=== PATIENT | female | born 1985 | race Caucasian/White ===

== ENCOUNTER 2016-11-03 10:04 | Emergency (ER) | payer OTHER | END 2016-11-03 13:15 | disposition home or self-care (01) | DX: F53 Mental and behavioral disorders associated with the puerperium, not elsewhere classified (principal); R45.851 Suicidal ideations; F51.02 Adjustment insomnia; F41.9 Anxiety disorder, unspecified ==

== ENCOUNTER 2018-10-03 11:43 | Emergency (ER) | payer OTHER ==
--- NOTE | 2018-10-03 12:50 | ED Physician Documentation ---
PD HPI URI - Stated complaint Stated Complaint: THROAT PX/DIFF BREATHING/24WKS PREG - Chief complaint Chief Complaint: Resp - History obtained from History obtained from: Patient - History of Present Illness Timing - onset: How many days ago (4) Timing duration: Days (4) Timing details: Abrupt onset, Still present Associated symptoms: Fever, Chills, Sore throat, Dry cough, Dyspnea, Other (still feeling movements and does not have cramping nor bleeding.). No: NVD Contributing factors: No: Sick contact, Travel Similar symptoms before: Has not had sx before Recently seen: Clinic (normal care so far. Was checked in OB by verbal report, with good heartbeat.) Review of Systems Constitutional: reports: Fever, Chills, Myalgias Nose: reports: Congestion Throat: reports: Sore throat Respiratory: reports: Cough GI: reports: Nausea. 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 : None HEENT: None Psych: None Musculoskeletal: None Derm: None - Past Surgical History Past Surgical History: No - Present Medications Home Medications: Ambulatory Orders Medication Instructions Recorded Confirmed ALPRAZolam [Alprazolam] 0.5 mg PO BID PRN #20 tablet 11/03/16 Sertraline [Zoloft] 50 mg PO DAILY #30 tablet 11/03/16 Dexamethasone [Decadron] 4 mg PO DAILY #5 tablet 10/03/18 Hydrocodone/Acetaminophen [[place] 1 each PO Q6H PRN #12 tablet 10/03/18 5-325 Tablet] Ondansetron Odt [Zofran] 4 mg TL Q6H PRN #10 tablet 10/03/18 Oseltamivir [Tamiflu] 75 mg PO BID #10 capsule 10/03/18 - Allergies Allergies/Adverse Reactions: Allergies Allergy/AdvReac Type Severity Reaction Status Date / Time Penicillins Allergy Unknown Verified 10/03/18 11:51 Sulfa (Sulfonamide Allergy Unknown Verified 10/03/18 11:51 Antibiotics) - Social History Does the pt smoke?: No Smoking Status: Never smoker Does the pt drink ETOH?: No Does the pt have substance abuse?: No - Immunizations Immunizations are current?: Yes - POLST Patient has POLST: No PD ED PE NORMAL - Vitals Vital signs reviewed: Yes - General General: Alert and oriented X 3, No acute distress, Well developed/nourished - HEENT HEENT: Ears normal, Moist mucous membranes. No: Pharynx benign (mild redness without exudate) - Neck Neck: Supple, no meningeal sign, No adenopathy - Cardiac Cardiac: RRR (tachycardic), No murmur - Respiratory Respiratory: Clear bilaterally - Abdomen Abdomen: Normal bowel sounds, Soft, Non tender, Non distended, Other (gravid with fundus above umbilicus. Not tender.) - Derm Derm: Normal color, Warm and dry - Neuro Neuro: Alert and oriented X 3, No motor deficit, Normal speech Results - Vitals Vitals: Vital Signs - 24 hr 10/03/18 10/03/18 11:45 11:50 Temperature 37 C Heart Rate 126 H 110 H Respiratory 22 16 Rate Blood Pressure 130/71 120/64 O2 Saturation 98 99 Oxygen O2 Source Room air - Labs Labs: Laboratory Tests 10/03/18 10/03/18 11:52 13:09 Influenza A (Rapid) POSITIVE H Influenza B (Rapid) Negative Group A Strep Rapid Negative PD MEDICAL DECISION MAKING - ED course Complexity details: considered differential (has flu A. would be more likely to give Tamiflu, given . Still having movement and heart beat (was checked at OB before ER by report). She did not feel she needed IV fluids, was hydrating okay. ), d/w patient Departure - Departure Disposition: 01 Home, Self Care Clinical Impression: Influenza A Pharyngitis Qualifiers: Pharyngitis/tonsillitis etiology: unspecified etiology Qualified Code(s): J02.9 - Acute pharyngitis, unspecified Condition: Stable Record reviewed to determine appropriate education?: Yes Instructions: ED Flu, ED Pharyngitis Viral Prescriptions: Dexamethasone [Decadron] 4 mg PO DAILY #5 tablet Hydrocodone/Acetaminophen [[place] 5-325 Tablet] 1 each PO Q6H PRN #12 tablet PRN Reason: Pain Ondansetron Odt [Zofran] 4 mg TL Q6H PRN #10 tablet PRN Reason: Nausea / Vomiting Oseltamivir [Tamiflu] 75 mg PO BID #10 capsule Comments: Your strep test is negative. Your flu test is positive. Given the and your symptoms, we can try to decrease the symptoms with oseltamivir which targets the flu. Mainly we will treat the symptoms with Decadron steroid for inflammation. Ondansetron if needed for nausea. Add Tylenol or hydrocodone if needed for the pains. He will likely feel ill for 7-10 days with the flu. Recheck if your symptoms are not improved however over the next day or 2. Discharge Date/Time: 10/03/18 14:25
[2018-10-03] MEDS ORDERED: HYDROcod/ACETAM 5/325 MG TABLET PO STA (13:11)
[2018-10-03] MEDS ORDERED: ACETAMINOPHEN 325 MG TABLET PO STA (13:11)
[2018-10-03] MEDS ORDERED: DEXAMETHASONE 10 MG/ML VIAL PO STA (13:11)
[2018-10-03] MEDS ORDERED: OSELTAMIVIR 75 MG CAPSULE PO STA (13:44)
[2018-10-03 14:07] VITALS: BP 120/64
== END 2018-10-03 14:25 | disposition home or self-care (01) ==
LOC: ED 11:43
DX: O26.892 Other specified pregnancy related conditions, second trimester (principal); J10.1 Influenza due to other identified influenza virus with other respiratory manifestations; Z3A.24 24 weeks gestation of pregnancy
CPT/HCPCS: 87070; 87275; 87276; 87430; 99283; A9270

== ENCOUNTER 2019-02-02 22:53 | Emergency (ER) | payer OTHER ==
[2019-02-02 23:03] VITALS: BP 118/66
--- NOTE | 2019-02-02 23:47 | XRAY Report ---
Reason: cough Procedure Date: 02/02/2019 Accession Number: [id number] / [id number] Procedure: XR - Chest 2 View X-Ray CPT Code: 03946 FULL RESULT: EXAM: CHEST RADIOGRAPHY EXAM DATE: 02/02/2019 11:40 PM. CLINICAL HISTORY: Cough. COMPARISON: CHEST 2 VIEW PA/LAT 12/01/2015 8:10 PM. TECHNIQUE: 2 views. FINDINGS: Lungs/Pleura: No alveolar consolidation or pleural effusion seen. No pneumothorax. Mediastinum: Heart and mediastinal contours are unremarkable. Other: None. IMPRESSION: 1. No acute abnormality seen in the chest. RADIA
[2019-02-03] MEDS ORDERED: LORATADINE 10 MG TABLET PO STA (00:18)
--- NOTE | 2019-02-03 00:20 | ED Physician Documentation ---
History of Present Illness - Stated complaint Stated Complaint: COUGH - Chief complaint Chief Complaint: Heent - History obtained from History obtained from: Patient, Family - Additonal information Additional information: 33-year-old female with a dry cough for the past 2 to 3 weeks. She gave approximately a week ago. Has not taken anything for this. No fevers. Nothing makes it better or worse. Does have rhinorrhea and congestion. No nausea. No vomiting. 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 - Past Surgical History Past Surgical History: No - Present Medications Home Medications: Ambulatory Orders Medication Instructions Recorded Confirmed ALPRAZolam [Alprazolam] 0.5 mg PO BID PRN #20 tablet 11/03/16 Sertraline [Zoloft] 50 mg PO DAILY #30 tablet 11/03/16 Hydrocodone/Acetaminophen [[place] 1 each PO Q6H PRN #12 tablet 10/03/18 5-325 Tablet] Ondansetron Odt [Zofran] 4 mg TL Q6H PRN #10 tablet 10/03/18 Oseltamivir [Tamiflu] 75 mg PO BID #10 capsule 10/03/18 dexAMETHasone [Decadron] 4 mg PO DAILY #5 tablet 10/03/18 Loratadine [Claritin] 10 mg PO DAILY PRN #30 tablet 02/03/19 - Allergies Allergies/Adverse Reactions: Allergies Allergy/AdvReac Type Severity Reaction Status Date / Time Penicillins Allergy Unknown Verified 02/02/19 23:04 Sulfa (Sulfonamide Allergy Unknown Verified 02/02/19 23:04 Antibiotics) - Social History Does the pt smoke?: No Smoking Status: Never smoker Does the pt drink ETOH?: No Does the pt have substance abuse?: No - Immunizations Immunizations are current?: Yes - POLST Patient has POLST: No PD ED PE NORMAL - Vitals Vital signs reviewed: Yes - General General: Alert and oriented X 3, No acute distress - HEENT HEENT: Ears normal, Moist mucous membranes, Other (Mild posterior oropharyngeal erythema without tonsillar exudates.) - Neck Neck: Supple, no meningeal sign, No adenopathy - Cardiac Cardiac: RRR - Respiratory Respiratory: No respiratory distress, Clear bilaterally - Abdomen Abdomen: Soft, Non tender, Non distended - Derm Derm: Warm and dry - Neuro Neuro: Alert and oriented X 3 - Psych Psych: Normal mood, Normal affect Results - Vitals Vitals: Vital Signs - 24 hr 02/02/19 02/03/19 23:00 00:27 Temperature 36.5 C Heart Rate 67 Respiratory 17 16 Rate Blood Pressure 118/66 O2 Saturation 100 Oxygen O2 Source Room air - Rads (name of study) cxr Radiology: Prelim report reviewed, EMP read contemporaneously, See rad report (No acute disease) PD MEDICAL DECISION MAKING - ED course Complexity details: reviewed results, re-evaluated patient, considered differential, d/w patient ED course: 33-year-old female with a cough for the past few weeks. Possible seasonal allergies? Will place on Claritin as she has breast-feeding. Patient is well- appearing, nontoxic. Afebrile. No acute findings on x-ray. Patient counseled regarding signs and symptoms for which I believe and urgent re-evaluation would be necessary. Patient with good understanding of and agreement to plan and is comfortable going home at this time This document was made in part using voice recognition software. While efforts are made to proofread this document, sound alike and grammatical errors may occur. Departure - Departure Disposition: 01 Home, Self Care Clinical Impression: Cough Condition: Good Instructions: ED Allergy Seasonal Follow-Up: your,doctor in 1 week [Other] Prescriptions: Loratadine [Claritin] 10 mg PO DAILY PRN #30 tablet PRN Reason: Allergy Symptoms Comments: Return if you worsen. This should improve over the next few days. Continue the Claritin at home. Discharge Date/Time: 02/03/19 00:28
== END 2019-02-03 00:28 | disposition home or self-care (01) ==
LOC: ED 22:53
DX: O99.89 Other specified diseases and conditions complicating pregnancy, childbirth and the puerperium (principal); R05 Cough; R09.81 Nasal congestion
CPT/HCPCS: 71046; 99283; A9270

== ENCOUNTER 2020-02-06 17:45 | Emergency (ER) | payer OTHER ==
--- NOTE | 2020-02-06 18:44 | XRAY Report ---
Reason: trauma Procedure Date: 02/06/2020 Accession Number: [id number] / [id number] Procedure: XR - Elbow 3 View LT CPT Code: Final Report FULL RESULT: PROCEDURE: Elbow 3 View LT INDICATIONS: trauma TECHNIQUE: 3 views of the elbow were acquired. COMPARISON: None FINDINGS: Bones: No definite fractures or dislocations but on one of the 4 views available there is a longitudinally oriented lucency at the radial head/neck junction, suspicious for a nondisplaced fracture. No suspicious bony lesions. Soft tissues: There is a significant definite elbow joint effusion elevating the anterior and posterior fat pads at the distal humerus. No suspicious soft tissue calcifications. IMPRESSION: Definite moderately large elbow joint effusion after trauma, suspected vertically oriented fracture involving the radial head/neck junction. Delayed plain films likely will identify a fracture in this clinical circumstance. Currently a displaced fracture is not found. The suspected site of fracture is area. At the radial head area. Reviewed by: Jose Manuel Dee MD on 02/06/2020 6:43 PM PDT Approved by: Jose Manuel Dee MD on 02/06/2020 6:43 PM PDT Station ID: [id number]
--- NOTE | 2020-02-06 18:47 | XRAY Report ---
Reason: Trauma Procedure Date: 02/06/2020 Accession Number: [id number] / [id number] Procedure: XR - Forearm LT CPT Code: Final Report FULL RESULT: PROCEDURE: Forearm LT INDICATIONS: Trauma TECHNIQUE: 2 views of the forearm were acquired. COMPARISON: FINDINGS: Bones: No definite fractures or dislocations. No suspicious bony lesions. Soft tissues: No suspicious soft tissue calcifications or masses. There is a elbow joint effusion as was seen on dedicated elbow plain film imaging earlier today. IMPRESSION: Elbow joint effusion after trauma, fracture in this area is presumed but not clearly visualized. The forearm elsewhere appears normal. Reviewed by: Jose Manuel eDe MD on 02/06/2020 6:46 PM PDT Approved by: Jose Manuel Dee MD on 02/06/2020 6:46 PM PDT Station ID: [id number]
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
[2020-02-06] MEDS ORDERED: HYDROcod/ACETAM 5/325 MG TABLET PO STA (19:28)
[2020-02-06] MEDS ORDERED: IBUPROFEN 600 MG TABLET PO STA ×2 (19:28→19:48)
[2020-02-06 20:16] VITALS: BP 114/78
== END 2020-02-06 20:16 | disposition home or self-care (01) ==
LOC: ED 17:45
DX: S52.125A Nondisplaced fracture of head of left radius, initial encounter for closed fracture (principal); S50.02XA Contusion of left elbow, initial encounter; S50.312A Abrasion of left elbow, initial encounter; V00.131A Fall from skateboard, initial encounter; Y93.51 Activity, roller skating (inline) and skateboarding; Y92.410 Unspecified street and highway as the place of occurrence of the external cause
CPT/HCPCS: 73080; 73090; 99283; A9270

== ENCOUNTER 2021-05-17 20:33 | Emergency (ER) | payer OTHER ==
[2021-05-17] MEDS ORDERED: BUFFERED LIDOCAINE 10 ML SYRINGE SUBQ STA (21:36)
[2021-05-17] MEDS ORDERED: TETANUS/DIPHTHERIA/PERTUSSIS 0.5 ML SYRINGE IM ONE (21:47)
--- NOTE | 2021-05-17 22:03 | ED Physician Documentation ---
PD HPI LOWER EXT INJURY - Stated complaint Stated Complaint: CUT ON LT FOOT - Chief complaint Chief Complaint: Laceration - History obtained from History obtained from: Patient - History of Present Illness PD HPI LOW EXT INJURY LOCATION: Left, Toe (3rd) Type of injury: Laceration Where injury occurred: Home Timing - onset: Today Timing - duration: Minutes Timing - details: Abrupt onset, Still present Improved by: Rest Worsened by: Moving, Palpating Associated symptoms: No: Weakness, Numbness, Tingling, Swelling, Discolored Contributing factors: No: Anticoagulated Similar symptoms before: Diagnosis (laceration) Recently seen: Not recently seen - Additional information Additional information: Previous well 35-year-old female pulled something out of her refrigerator the shelf in the refrigerator fell and the glass broke. She is uncertain how exactly her toe got cut but she is got quite a bit of bleeding from the middle toe of the left foot. She is able to control the bleeding with direct pressure and comes in now for suturing. 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 : None HEENT: None Psych: None Musculoskeletal: None Derm: None - Past Surgical History Past Surgical History: No - Present Medications Home Medications: Ambulatory Orders Medication Instructions Recorded Confirmed No Known Home Medications 05/17/21 05/17/21 - Allergies Allergies/Adverse Reactions: Allergies Allergy/AdvReac Type Severity Reaction Status Date / Time Penicillins Allergy Unknown Verified 05/17/21 20:36 Sulfa (Sulfonamide Allergy Unknown Verified 05/17/21 20:36 Antibiotics) - Social History Does the pt smoke?: No Smoking Status: Never smoker Does the pt drink ETOH?: No Does the pt have substance abuse?: No - Immunizations Immunizations are current?: No Immunizations: TDAP >10years/unknown - POLST Patient has POLST: No PD ED PE NORMAL - Vitals Vital signs reviewed: Yes (Normal) - General General: Alert and oriented X 3, No acute distress, Well developed/nourished - HEENT HEENT: Atraumatic, PERRL, EOMI - Respiratory Respiratory: No respiratory distress - Derm Derm: Normal color, Warm and dry, No rash - Extremities Extremities: No deformity, No edema, Other (There is 1/2 cm laceration to the dorsum of the left middle toe over the interphalangeal joint there is no foreign material in the wound distal neurovascular intact) - Neuro Neuro: Alert and oriented X 3, 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, No motor deficit, No sensory deficit, Normal speech Eye Opening: Spontaneous Motor: Obeys Commands Verbal: Oriented GCS Score: 15 - Psych Psych: Normal mood, Normal affect Results - Vitals Vitals: Vital Signs - 24 hr 05/17/21 20:36 Temperature 36.5 C Heart Rate 74 Respiratory 16 Rate Blood Pressure 120/60 O2 Saturation 100 Oxygen O2 Source Room air Procedures - Laceration (location) left middle toe Wound type: Stellate, Flap Neurovascular status: Sensory intact, Motor intact, Vascular intact Anesthesia: Lidocaine 1%, With bicarb Wound preparation: Hibiclens, Irrigated copiously NS, Wound explored, To the base Skin layer closure: Nylon, Interrupted, Size #-0 - enter number (4-0), Sutures - enter # (3) Other: Patient tolerated well, No complications, Neurovascular intact, Dressing applied, Tetanus booster given PD MEDICAL DECISION MAKING - ED course Complexity details: considered differential, d/w patient ED course: 35-year-old female with a left middle toe laceration has her wound cleansed and sutured she is given a tetanus booster she is dispensed the instruments for removal of her sutures and instructed to remove the sutures in 7 to 10 days. Departure - Departure Disposition: 01 Home, Self Care Clinical Impression: Toe laceration Qualifiers: Encounter type: initial encounter Toe: lesser toe Damage to nail status: without damage Foreign body presence: without foreign body Laterality: left Qualified Code(s): S91.115A - Laceration without foreign body of left lesser toe(s) without damage to nail, initial encounter Condition: Stable Instructions: ED Laceration Foot Follow-Up: QAMAR Jackson [Provider Group] Comments: Sutures will need to be removed in 7 to 10 days
[2021-05-17] MEDS ORDERED: BACITRACIN ZINC OINT 1 PACKET TOP STA (22:08)
[2021-05-17 22:19] VITALS: BP 120/70
== END 2021-05-17 22:17 | disposition home or self-care (01) ==
LOC: ED 20:33
DX: S91.115A Laceration without foreign body of left lesser toe(s) without damage to nail, initial encounter (principal); W25.XXXA Contact with sharp glass, initial encounter; Y93.G9 Activity, other involving cooking and grilling; Y92.000 Kitchen of unspecified non-institutional (private) residence as the place of occurrence of the external cause
CPT/HCPCS: 12001; 90715; 99281; 99282; A9270

== ENCOUNTER 2022-02-10 23:44 | Emergency (ER) | payer OTHER ==
[2022-02-11 00:09] LABS: BASOPHILS # (AUTO) 0.1 10^3/uL (0.0-0.1); BASOPHILS % (AUTO) 0.9 %; EOSINOPHILS # (AUTO) 0.3 10^3/uL (0.0-0.7); EOSINOPHILS % (AUTO) 4.6 %; HCT - HEMATOCRIT 39.3 % (37.0-47.0); HGB - HEMOGLOBIN 13.5 g/dL (12.0-16.0); LYMPHOCYTES # (AUTO) 2.6 10^3/uL (1.5-3.5); LYMPHOCYTES % (AUTO) 38.3 %; MEAN CORPUSCULAR HEMOGLOBIN 32.2 pg (27.0-31.0); MEAN CORPUSCULAR HGB CONC 34.4 g/dL (32.0-36.0); MEAN CORPUSCULAR VOLUME 93.8 fL (81.0-99.0); MEAN PLATELET VOLUME 10.3 fL (7.9-10.8); MONOCYTES # (AUTO) 0.5 10^3/uL (0.0-1.0); MONOCYTES % (AUTO) 7.9 %; NEUTROPHILS # (AUTO) 3.3 10^3/uL (1.5-6.6); NEUTROPHILS % (AUTO) 48.2 %; PLT - PLATELET COUNT 234 10^3/uL (130-450); RED BLOOD COUNT 4.19 10^6/uL (4.20-5.40); RED CELL DISTRIBUTION WIDTH 11.7 % (12.0-15.0); WHITE BLOOD COUNT 6.7 x10^3/uL (4.8-10.8)
[2022-02-11 00:21] LABS: ALBUMIN 4.3 g/dL (3.2-5.5); ALBUMIN/GLOBULIN RATIO 1.6 (1.0-2.2); BILIRUBIN,TOTAL 0.5 mg/dL (0.2-1.0); CALCIUM 9.2 mg/dL (8.5-10.3); CREATININE 0.7 mg/dL (0.4-1.0); POTASSIUM 3.8 mmol/L (3.5-5.0)
[2022-02-11] MEDS ORDERED: KETOROLAC 30 MG/ML VIAL IVP STA (00:56)
--- NOTE | 2022-02-11 00:57 | ED Physician Documentation ---
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 Over the past day she has developed a separate problem that is extremely painful in the pelvis and painful with any movement. She is having pain to push on the prolapse as well. Specifically this pain is separate from what she has had previously and has a modifiable factor of movement.She is not having discharge or bleeding. Review of Systems Constitutional: denies: Fever Eyes: denies: Decreased vision Ears: denies: Ear pain Nose: denies: Congestion Throat: denies: Sore throat Cardiac: denies: Chest pain / pressure, Palpitations Respiratory: denies: Dyspnea, Cough GI: reports: Abdominal Pain, Nausea. denies: Vomiting, Constipation, Diarrhea : denies: Dysuria, Frequency Skin: denies: Rash Musculoskeletal: denies: Neck pain, Back pain, Extremity pain PD PAST MEDICAL HISTORY - Past Medical History Past Medical History: No Cardiovascular: None Respiratory: None Neuro: None Endocrine/Autoimmune: None GI: None HYDRAULIC SPINNER: None : None HEENT: None Psych: None Musculoskeletal: None Derm: None - Past Surgical History Past Surgical History: No - Present Medications Home Medications: Ambulatory Orders Medication Instructions Recorded Confirmed Oxycodone HCl/Acetaminophen 1 - 2 each PO Q6H PRN #14 tablet 02/11/22 [Percocet 5-325 mg Tablet] - Allergies Allergies/Adverse Reactions: Allergies Allergy/AdvReac Type Severity Reaction Status Date / Time Penicillins Allergy Unknown Verified 02/10/22 23:50 Sulfa (Sulfonamide Allergy Unknown Verified 02/10/22 23:50 Antibiotics) - Social History Does the pt smoke?: No Smoking Status: Never smoker Does the pt drink ETOH?: No Does the pt have substance abuse?: No - Immunizations Immunizations are current?: No Immunizations: TDAP >10years/unknown - POLST Patient has POLST: No PD ED PE NORMAL - Vitals Vital signs reviewed: Yes (Hypertensive mild) - General General: Alert and oriented X 3, Well developed/nourished - HEENT HEENT: Atraumatic, PERRL, EOMI - Neck Neck: Supple, no meningeal sign, No bony TTP - Cardiac Cardiac: RRR, No murmur - Respiratory Respiratory: No respiratory distress, Clear bilaterally - Abdomen Abdomen: Normal bowel sounds, Soft, Non distended, No organomegaly, Other (Supra pubic tenderness is marked and seems more on the right than the left.) - Back Back: No CVA TTP, No spinal TTP - Derm Derm: Normal color, Warm and dry, No rash - Extremities Extremities: No deformity, No edema - Neuro Neuro: Alert and oriented X 3, 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, No motor deficit, No sensory deficit, Normal speech Eye Opening: Spontaneous Motor: Obeys Commands Verbal: Oriented GCS Score: 15 - Psych Psych: Other (Mood is anxious then the affect is labile) Results - Vitals Vitals: Vital Signs - 24 hr 02/10/22 02/11/22 02/11/22 23:45 00:45 01:47 Temperature 36.5 C Heart Rate 89 84 Respiratory 14 16 16 Rate Blood Pressure 135/85 H 107/75 O2 Saturation 97 97 02/11/22 01:52 Temperature Heart Rate Respiratory 17 Rate Blood Pressure O2 Saturation Oxygen O2 Source Room air - Labs Labs: Laboratory Tests 02/10/22 02/10/22 02/11/22 00:03 00:03 01:20 WBC 6.7 RBC 4.19 L Hgb 13.5 Hct 39.3 MCV 93.8 MCH 32.2 H MCHC 34.4 RDW 11.7 L Plt Count 234 MPV 10.3 Neut # (Auto) 3.3 Lymph # (Auto) 2.6 [place] # (Auto) 0.5 Eos # (Auto) 0.3 Baso # (Auto) 0.1 Absolute Nucleated RBC 0.00 Nucleated RBC % 0.0 Sodium 137 Potassium 3.8 Chloride 104 Carbon Dioxide 25 Anion Gap 8.0 BUN 23 H Creatinine 0.7 Estimated GFR (MDRD) 95 Glucose 109 H Calcium 9.2 Total Bilirubin 0.5 AST 15 ALT 12 Alkaline Phosphatase 50 Total Protein 7.0 Albumin 4.3 Globulin 2.7 Albumin/Globulin Ratio 1.6 Lipase 39 Urine Color YELLOW Urine Clarity CLEAR Urine pH 6.5 Ur Specific [place] 1.015 Urine Protein NEGATIVE Urine Glucose (UA) NEGATIVE Urine Ketones NEGATIVE Urine Occult Blood NEGATIVE Urine Nitrite NEGATIVE Urine Bilirubin NEGATIVE Urine Urobilinogen 0.2 (NORMAL) Ur Leukocyte Esterase NEGATIVE Ur Microscopic Review NOT INDICATED Urine Culture Comments NOT INDICATED Urine HCG, Qual NEGATIVE - Rads (name of study) Ultrasound the pelvis Radiology: Prelim report reviewed (Impression: 1. No definite acute sonographic abnormality identified in the pelvis. Thick-walled cyst in the right ovary likely represents a corpus luteal cyst or hemorrhagic cyst.), EMP read indepedently, See rad report PD MEDICAL DECISION MAKING - ED course Complexity details: reviewed old records, reviewed results, re-evaluated patient, considered differential, d/w patient, d/w family ED course: 36-year-old female presents to the emergency department with acute pelvic pain. She has other pelvic problems that have been chronic for her and she has not addressed. She feels that she has a uterine prolapse and has some problem with passing her bowel movements without placing pressure on the prolapse. Today her symptoms are separate and painful. They are modified by movement. She has normal blood counts and electrolytes and normal urinalysis she is not . We performed pelvic ultrasound and found a hemorrhagic cyst on the right side. The patient had significant pain associated with this. She did not get adequate relief with Toradol IM and was subsequently administered Dilaudid. The patient is somewhat of a tangential historian and a bit anxious. She does have problems that should be addressed by the HYDRAULIC SPINNER surgeon. I have encouraged the patient to follow-up. Departure - Departure Disposition: 01 Home, Self Care Clinical Impression: Hemorrhagic cyst of right ovary Condition: Stable Instructions: ED Cyst Ovarian Follow-Up: [facility] [Provider Group] Prescriptions: Oxycodone HCl/Acetaminophen [Percocet 5-325 mg Tablet] 1 - 2 each PO Q6H PRN #14 tablet PRN Reason: pain Comments: Kaia, today it looks like the pain you are having is related to an ovarian cyst that has some bleeding into it. This is usually a very painful process and will last 2 to 3 days. I have provided some pain medication to use. The other problems that you are having with your uterine prolapse is best addressed by the specialist. My recommendation is to follow-up with the film loader at [facility]. There is no reason to delay the evaluation of these other problems. Today we did not find problems with your blood counts, electrolytes, urinalysis, kidney or liver functions.
--- NOTE | 2022-02-11 01:32 | Ultrasound Report ---
PROCEDURE: Pelvic w/Doppler Complete INDICATIONS: PELVIC PAIN R TECHNIQUE: Real-time transabdominal scanning was performed of the pelvic organs, with image documentation. COMPARISON: None. FINDINGS: Uterus: Uterus is anteverted and measures 11.0 x 5.7 x 7.4 cm. The endometrium measures up to 1.2 cm . Ovaries: The right ovary measures 4.5 x 2.6 x 3.8 cm with age-related volume of 23 20 mL. The left o vary measures 30.3 x 2.4 x 2.6 cm with a calculated volume of 10.7 mL. There is a thick-walled cyst i n the right ovary measuring up to 3.3 x 2.1 x 2.5 cm. Doppler interrogation demonstrates patent arter ial and venous flow. Other: No free pelvic fluid. IMPRESSION: 1. No definite acute sonographic abnormality identified in the pelvis. 2. Thick wall cyst in the right ovary likely represents a corpus luteal cyst or a hemorrhagic cyst. Reviewed by: Yoel Disa MD on 02/11/2022 1:31 AM PDT Approved by: Yoel Dias MD on 02/11/2022 1:31 AM PDT Station ID: [id number]
[2022-02-11 01:33] LABS: BILIRUBIN,URINE NEGATIVE (NEGATIVE); GLUCOSE, URINE (UA) NEGATIVE (NEGATIVE); KETONES,URINE (UA) NEGATIVE (NEGATIVE); LEUKOCYTE ESTERASE, URINE NEGATIVE (NEGATIVE); NITRITE,URINE NEGATIVE (NEGATIVE); OCCULT BLOOD,URINE NEGATIVE (NEGATIVE); PH,URINE 6.5 PH (5.0-7.5); PROTEIN,URINE NEGATIVE (NEGATIVE); UROBILINOGEN,URINE 0.2 (NORMAL) E.U./dL (NORMAL)
[2022-02-11 01:35] LABS: CLARITY,URINE CLEAR (CLEAR)
[2022-02-11 01:36] LABS: HCG UR QUAL NEGATIVE
[2022-02-11] MEDS ORDERED: oxyCODONE/ACET 5/325 Prepack 4 PO STA (01:43)
[2022-02-11] MEDS ORDERED: ONDANSETRON ODT 4 MG TABLET TL STA (01:58)
[2022-02-11] MEDS ORDERED: HYDROmorphone 1 MG/ML CARPUJECT IM STA (01:58)
[2022-02-11 02:08] VITALS: BP 111/72
== END 2022-02-11 02:16 | disposition home or self-care (01) ==
LOC: ED 23:44
DX: N83.201 Unspecified ovarian cyst, right side (principal)
CPT/HCPCS: 36415; 76856; 80053; 81003; 81025; 83690; 85025; 93975; 96372; 96374; 99284; J1170; Q0162; 81001; 87086

== ENCOUNTER 2022-02-17 07:27 | Emergency (ER) | payer OTHER ==
[2022-02-17 07:36] VITALS: BP 114/71
--- NOTE | 2022-02-17 07:42 | ED Physician Documentation ---
PD HPI FEMALE - Stated complaint Stated Complaint: FEMALE - Chief complaint Chief Complaint: General - History obtained from History obtained from: Patient - History of Present Illness Timing - onset: How many days ago (3-4 days of increasing vaginal itching, tenderness posterior fourchette, and vaginal watery/white discharge. Has had right pelvic pain for over a week as well, which is improved moderately.) Timing - duration: Days Timing - details: Gradual onset, Still present Associated symptoms: Pelvic pain, Vaginal pain, Vaginal discharge, Genital sore/lesion (tender area posterior to vaginal opening). 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 She did not have discharge at that time. Rx with nsaids and pain meds. No abx.) Review of Systems Constitutional: denies: Fever, Chills Nose: denies: Rhinorrhea / runny nose, Congestion Throat: denies: Sore throat Respiratory: denies: Cough Skin: reports: Lesions (she feels there are sores between vaginal opening and rectum.). denies: Rash Musculoskeletal: denies: Back pain PD PAST MEDICAL HISTORY - Past Medical History Cardiovascular: None Respiratory: None Neuro: None Endocrine/Autoimmune: None GI: None CERTIFIED MASTER LOCKSMITH: None : None HEENT: None Psych: None Musculoskeletal: None Derm: None - Past Surgical History Past Surgical History: No - Present Medications Home Medications: Ambulatory Orders Medication Instructions Recorded Confirmed Fluconazole [Diflucan] 150 mg PO Q3D #2 tablet 02/17/22 Lidocaine Ointment 5% [Xylocaine 1 applic TOP QID PRN #35.44 gm 02/17/22 Ointment 5%] metroNIDAZOLE [Flagyl] 500 mg PO BID 7 Days #14 tablet 02/17/22 - Allergies Allergies/Adverse Reactions: Allergies Allergy/AdvReac Type Severity Reaction Status Date / Time Penicillins Allergy Unknown Verified 02/17/22 07:33 Sulfa (Sulfonamide Allergy Unknown Verified 02/17/22 07:33 Antibiotics) - Social History Does the pt smoke?: No Smoking Status: Never smoker Does the pt drink ETOH?: No Does the pt have substance abuse?: No - Immunizations Immunizations are current?: No Immunizations: TDAP >10years/unknown - POLST Patient has POLST: No PD ED PE NORMAL - Vitals Vital signs reviewed: Yes - General General: Alert and oriented X 3, No acute distress, Well developed/nourished - Abdomen Abdomen: Soft, Non tender - Female Female : Imagery Intelligence present (Jerson), Other (some redness with demarcated edge in labial folds c/w yeast. Vault with watery/milky white discharge and some redness of cervix end. No note endocervical discharge per se. Posterior fourchette with some superficial ulcerations in skin folds, and some redness. No blisters. Perirectal is normal. ) - Back Back: No CVA TTP - Derm Derm: Normal color, Warm and dry Results - Vitals Vitals: Vital Signs - 24 hr 02/17/22 07:33 Temperature 36.5 C Heart Rate 70 Respiratory 16 Rate Blood Pressure 114/71 O2 Saturation 100 Oxygen O2 Source Room air - Labs Labs: Laboratory Tests 02/17/22 02/17/22 02/17/22 07:55 08:35 08:35 WBC 5.1 RBC 4.45 Hgb 14.2 Hct 42.5 MCV 95.5 MCH 31.9 H MCHC 33.4 RDW 11.7 L Plt Count 232 MPV 10.2 Neut # (Auto) 2.7 Lymph # (Auto) 1.7 [place] # (Auto) 0.5 Eos # (Auto) 0.3 Baso # (Auto) 0.0 Absolute Nucleated RBC 0.00 Nucleated RBC % 0.0 Sodium 138 Potassium 4.1 Chloride 102 Carbon Dioxide 25 Anion Gap 11.0 BUN 11 Creatinine 0.9 Estimated GFR (MDRD) 71 L Glucose 96 Estimat Average Glucose Hemoglobin A1c % Calcium 9.1 Urine Color YELLOW Urine Clarity SL. CLOUDY Urine pH 6.0 Ur Specific [place] 1.020 Urine Protein NEGATIVE Urine Glucose (UA) NEGATIVE Urine Ketones NEGATIVE Urine Occult Blood NEGATIVE Urine Nitrite NEGATIVE Urine Bilirubin NEGATIVE Urine Urobilinogen 0.2 (NORMAL) Ur Leukocyte Esterase NEGATIVE Urine RBC None Seen Urine WBC 0-3 Ur Squamous Epith Cells MANY Squamous H Urine Bacteria Rare Ur Microscopic Review INDICATED Urine Culture Comments NOT INDICATED Urine HCG, Qual NEGATIVE C. glabrata (PCR) C. krusei (PCR) Joanne species DNA Chlam trachomat DNA PCR N.gonorrhoeae DNA (PCR) T. vaginalis (PCR) Bact Vaginosis (PCR) 02/17/22 02/17/22 02/17/22 08:35 08:54 09:05 WBC RBC Hgb Hct MCV MCH MCHC RDW Plt Count MPV Neut # (Auto) Lymph # (Auto) [place] # (Auto) Eos # (Auto) Baso # (Auto) Absolute Nucleated RBC Nucleated RBC % Sodium Potassium Chloride Carbon Dioxide Anion Gap BUN Creatinine Estimated GFR (MDRD) Glucose Estimat Average Glucose 97 Hemoglobin A1c % 5.0 Calcium Urine Color Urine Clarity Urine pH Ur Specific [place] Urine Protein Urine Glucose (UA) Urine Ketones Urine Occult Blood Urine Nitrite Urine Bilirubin Urine Urobilinogen Ur Leukocyte Esterase Urine RBC Urine WBC Ur Squamous Epith Cells Urine Bacteria Ur Microscopic Review Urine Culture Comments Urine HCG, Qual C. glabrata (PCR) NEGATIVE C. krusei (PCR) NEGATIVE Joanne species DNA NEGATIVE Chlam trachomat DNA PCR NEGATIVE N.gonorrhoeae DNA (PCR) NEGATIVE T. vaginalis (PCR) NEGATIVE TNP Bact Vaginosis (PCR) NEGATIVE PD MEDICAL DECISION MAKING - ED course Complexity details: reviewed old records, considered differential (looks like yeast vulvovaginitis, and some perivaginal skin irritation with ulcerations likely from irritated skin. Does not look like abscesses/etc. Vaginal discharge also looking likely BV. ), d/w patient Departure - Departure Disposition: 01 Home, Self Care Clinical Impression: Vulvovaginitis due to yeast, Vaginitis Condition: Stable Record reviewed to determine appropriate education?: Yes Instructions: ED Vaginosis Bacterial, ED Vaginal Infec Fungal Joanne Follow-Up: [facility] [Provider Group] Prescriptions: Fluconazole [Diflucan] 150 mg PO Q3D #2 tablet metroNIDAZOLE [Flagyl] 500 mg PO BID 7 Days #14 tablet Lidocaine Ointment 5% [Xylocaine Ointment 5%] 1 applic TOP QID PRN #35.44 gm PRN Reason: Pain Comments: By the appearance, it looks like there is a combination of yeast infection both in the outer labial creases and perivaginal as well as intravaginal yeast infection. The appearance of the discharge also is suggestive of a bacterial vaginitis. The vaginal swab/PCR test should result later today or possibly tomorrow to better determine that. Meanwhile I would start treatment with antifungal and metronidazole antibiotic presuming both. We will call you if the results show otherwise we will try to call you with results anyway. Symptom pereira you can use some lidocaine ointment on the outer raw tissue areas. The area between the vaginal opening and rectum does have some superficial ulcerations in the skin folds which appears related to irritation and not a separate infection per se. I would treat that with gentle cleansing and the lidocaine ointment and then protective barrier such as Vaseline or A&E ointment or diaper rash cream to the area to protect it. I believe that area of irritated skin will improve as the infections improve va ginally and there is less discharge. Recheck if not improved well over the next several days return as needed. Otherwise follow-up with [facility] [employer]PERATOR/women's health at their earliest availability. Continue with anti-inflammatories such as ibuprofen or naproxen for your pelvic pain and add Tylenol every 4-6 hours if needed. Discharge Date/Time: 02/17/22 09:11
[2022-02-17 08:09] LABS: BILIRUBIN,URINE NEGATIVE (NEGATIVE); GLUCOSE, URINE (UA) NEGATIVE (NEGATIVE); KETONES,URINE (UA) NEGATIVE (NEGATIVE); LEUKOCYTE ESTERASE, URINE NEGATIVE (NEGATIVE); NITRITE,URINE NEGATIVE (NEGATIVE); OCCULT BLOOD,URINE NEGATIVE (NEGATIVE); PROTEIN,URINE NEGATIVE (NEGATIVE); UROBILINOGEN,URINE 0.2 (NORMAL) E.U./dL (NORMAL)
[2022-02-17 08:14] LABS: CLARITY,URINE SL. CLOUDY (CLEAR); HCG UR QUAL NEGATIVE
[2022-02-17 08:16] LABS: BACTERIA,URINE Rare /HPF (None Seen); RBC,URINE None Seen /HPF (0-5); SQUAMOUS EPITHELIAL CELL,UR MANY Squamous (<= Few); WBC,URINE 0-3 /HPF (0-5)
[2022-02-17 08:43] LABS: BASOPHILS % (AUTO) 0.6 %; EOSINOPHILS # (AUTO) 0.3 10^3/uL (0.0-0.7); EOSINOPHILS % (AUTO) 5.3 %; HCT - HEMATOCRIT 42.5 % (37.0-47.0); HGB - HEMOGLOBIN 14.2 g/dL (12.0-16.0); LYMPHOCYTES # (AUTO) 1.7 10^3/uL (1.5-3.5); LYMPHOCYTES % (AUTO) 32.5 %; MEAN CORPUSCULAR HEMOGLOBIN 31.9 pg (27.0-31.0); MEAN CORPUSCULAR HGB CONC 33.4 g/dL (32.0-36.0); MEAN CORPUSCULAR VOLUME 95.5 fL (81.0-99.0); MEAN PLATELET VOLUME 10.2 fL (7.9-10.8); MONOCYTES # (AUTO) 0.5 10^3/uL (0.0-1.0); MONOCYTES % (AUTO) 8.8 %; NEUTROPHILS # (AUTO) 2.7 10^3/uL (1.5-6.6); NEUTROPHILS % (AUTO) 52.6 %; PLT - PLATELET COUNT 232 10^3/uL (130-450); RED BLOOD COUNT 4.45 10^6/uL (4.20-5.40); RED CELL DISTRIBUTION WIDTH 11.7 % (12.0-15.0); WHITE BLOOD COUNT 5.1 x10^3/uL (4.8-10.8)
[2022-02-17 08:48] LABS: CALCIUM 9.1 mg/dL (8.5-10.3); CREATININE 0.9 mg/dL (0.4-1.0); POTASSIUM 4.1 mmol/L (3.5-5.0)
[2022-02-17] MEDS ORDERED: FLUCONAZOLE 100 MG TABLET PO STA (08:52)
[2022-02-17] MEDS ORDERED: LIDOCAINE OINTMENT 5% 35.44 GM TUBE TOP STA (08:52)
[2022-02-17] MEDS ORDERED: metroNIDAZOLE 250 MG TABLET PO STA (08:52)
[2022-02-17 11:07] LABS: BACTERIAL VAGINOSIS DNA NEGATIVE (NEGATIVE); CANDIDA GLABRATA DNA NEGATIVE (NEGATIVE); CANDIDA GROUP DNA NEGATIVE (NEGATIVE); CANDIDA KRUSEI DNA NEGATIVE (NEGATIVE); TRICHOMONAS VAGINALIS DNA NEGATIVE (NEGATIVE)
[2022-02-17 11:10] LABS: ESTIMATED AVERAGE GLUCOSE 97 mg/dL (70-100)
[2022-02-17 13:45] LABS: CHLAMYDIA TRACHOMATIS DNA NEGATIVE (NEGATIVE); NEISSERIA GONORRHOEAE DNA NEGATIVE (NEGATIVE)
== END 2022-02-17 09:11 | disposition home or self-care (01) ==
LOC: ED 07:27
DX: B37.3 Candidiasis of vulva and vagina (principal)
CPT/HCPCS: 36415; 80048; 81001; 81025; 81514; 83036; 85025; 87491; 87591; 99282; 99283; A9270; 81003; 87086; 87661

== ENCOUNTER 2022-02-19 14:28 | Emergency (ER) | payer OTHER ==
--- NOTE | 2022-02-19 14:44 | ED Physician Documentation ---
PD HPI FEMALE - Stated complaint Stated Complaint: PELVIC BURNING PAIN - Chief complaint Chief Complaint: Abd Pain - History obtained from History obtained from: Patient - History of Present Illness Timing - onset: How many weeks ago (1) Timing - duration: Weeks (1) Timing - details: Gradual onset, Still present (The patient has had vaginal discharge and itching and painful skin lesions developing. She was seen 2 days ago with diagnosis clinically of yeast and BV. Her PCR tests were negative subsequently however. She states she is having more pain now and noticing sores in the perineum and perirectal.) Associated symptoms: Vaginal pain, Vaginal discharge, Genital sore/lesion. No: Fever, Vaginal bleeding Contributing factors: No: Exposed to STD Recently seen: Emergency Dept (2 days ago for same, with newer sores developing in perineum and perirectal area now.) Review of Systems Constitutional: denies: Fever, Chills, Myalgias Nose: denies: Rhinorrhea / runny nose, Congestion Throat: denies: Oral lesions / sores, Sore throat Respiratory: denies: Cough GI: reports: Abdominal Pain. denies: Nausea, Vomiting, Diarrhea : reports: Discharge. 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 : None HEENT: None Psych: None Musculoskeletal: None Derm: None - Past Surgical History Past Surgical History: No - Present Medications Home Medications: Ambulatory Orders Medication Instructions Recorded Confirmed Fluconazole [Diflucan] 150 mg PO Q3D #2 tablet 02/17/22 Lidocaine Ointment 5% [Xylocaine 1 applic TOP QID PRN #35.44 gm 02/17/22 Ointment 5%] metroNIDAZOLE [Flagyl] 500 mg PO BID 7 Days #14 tablet 02/17/22 Betamethasone Valerate 1 applic TP BID 5 Days #45 gm 02/19/22 HYDROcod/ACETAM 5/325 [[place] 5/325] 1 ea PO Q6H PRN #18 tablet 02/19/22 Hydrocortisone Acetate 25 mg RC DAILY 5 Days #5 supp.rect 02/19/22 Lidocaine Jelly 2% [Xylocaine 1 applic TOP BID #30 ml 02/19/22 Jelly 2%] Valacyclovir HCl [Valtrex] 1,000 mg PO TID #15 tablet 02/19/22 - Allergies Allergies/Adverse Reactions: Allergies Allergy/AdvReac Type Severity Reaction Status Date / Time Penicillins Allergy Unknown Verified 02/19/22 14:39 Sulfa (Sulfonamide Allergy Unknown Verified 02/19/22 14:39 Antibiotics) - Social History Does the pt smoke?: No Smoking Status: Never smoker Does the pt drink ETOH?: No Does the pt have substance abuse?: No - Immunizations Immunizations are current?: No Immunizations: TDAP >10years/unknown - POLST Patient has POLST: No PD ED PE NORMAL - Vitals Vital signs reviewed: Yes - General General: Alert and oriented X 3, Well developed/nourished - Abdomen Abdomen: Normal bowel sounds, Soft, Non tender, Non distended - Female Female : Syruper present, Other (somewhat less discharge compared to 2 days ago in vault. Less redness labial folds. More ulcerative lesions in perineum and perirectal. Digital rectal exam felt some small) Results - Vitals Vitals: Vital Signs - 24 hr 02/19/22 02/19/22 14:33 15:54 Temperature 36.7 C Heart Rate 105 H 88 Respiratory 18 18 Rate Blood Pressure 176/72 H 121/79 O2 Saturation 99 95 Oxygen O2 Source Room air PD MEDICAL DECISION MAKING - ED course Complexity details: reviewed old records, d/w patient (M), d/w storage management consultant (Navjot, who felt treating as possible herpetic. She said the ofGYN office should see patient on ED f/u even if not taking new patients. ) Departure - Departure Disposition: 01 Home, Self Care Clinical Impression: Genital ulcer, female, Vaginal discharge, Perineal pain in female Condition: Stable Record reviewed to determine appropriate education?: Yes Follow-Up: Radha Morfin MD [Provider Admit Priv/Credential] - Prescriptions: Betamethasone Valerate 1 applic TP BID 5 Days #45 gm Hydrocortisone Acetate 25 mg RC DAILY 5 Days #5 supp.rect HYDROcod/ACETAM 5/325 [[place] 5/325] 1 ea PO Q6H PRN #18 tablet PRN Reason: Pain Valacyclovir HCl [Valtrex] 1,000 mg PO TID #15 tablet Lidocaine Jelly 2% [Xylocaine Jelly 2%] 1 applic TOP BID #30 ml Comments: We did add viral PCR test as well as HSV blood tests with consideration of a herpetic cause for your lesions. I talked with Dr. Morfin who is on-call for gynecology for us. She states for you to call the office on today or Tuesday and let them know you are seen in the ER and we talked to her for an ER follow-up appointment which is different than the new patient appointment. She said the office should take ER follow-ups even if there not excepting new patients per se. She did suggest starting antiviral medication for a suspicion of herpetic cause. We would add Tatianna acyclovir 3 times a day for the next 5 days. Continue with the current antifungal and Flagyl as it does seem likely some component of yeast and BV. Add a steroid for inflammation with both topical and the perivaginal area and suppository for the rectal area. Continue with the lidocaine gel. Hydrocodone every 4-6 hours if needed for worse pain. I transmitted these prescriptions to the pharmacy. Follow-up with gynecology soonest available. Discharge Date/Time: 02/19/22 15:54
[2022-02-19] MEDS ORDERED: HYDROCORTISONE 25 MG SUPPOSITORY PR STA (15:14)
[2022-02-19] MEDS ORDERED: valACYclovir 500 MG TABLET PO STA (15:28)
[2022-02-19 15:55] VITALS: BP 121/79
[2022-02-20 08:08] LABS: HSV 1 IGG TYPE SPEC <0.91 index (0.00-0.90); HSV 2 IGG TYPE SPEC <0.91 index (0.00-0.90)
[2022-02-20 19:06] LABS: HSV IGM I/II COMBINATION <0.91 Ratio (0.00-0.90)
[2022-02-24 04:08] LABS: HSV-1 DNA Negative (Negative); HSV-2 DNA Negative (Negative)
== END 2022-02-19 15:54 | disposition home or self-care (01) ==
LOC: ED 14:28
DX: R10.2 Pelvic and perineal pain (principal); N76.5 Ulceration of vagina
CPT/HCPCS: 86694; 86695; 86696; 87529; 99283; 99284; A9270; J3490

== ENCOUNTER 2022-02-24 11:28 | Outpatient (CLI) | payer OTHER ==
[2022-02-24 12:17] LABS: GTT GLUCOSE,FASTING 93 mg/dL (70-100)
== END 2022-02-24 11:29 | disposition home or self-care (01) ==
LOC: LAB 11:28
PROVIDERS: ATTEND Nurse Practitioner
DX: G47.00 Insomnia, unspecified (principal); L65.9 Nonscarring hair loss, unspecified; F41.9 Anxiety disorder, unspecified; Z86.32 Personal history of gestational diabetes
CPT/HCPCS: 36415; 82951; 84443

== ENCOUNTER 2022-06-03 08:00 | Outpatient (CLI) | payer OTHER ==
[2022-06-03 22:13] LABS: BACTERIAL VAGINOSIS DNA NEGATIVE (NEGATIVE); CANDIDA GLABRATA DNA NEGATIVE (NEGATIVE); CANDIDA GROUP DNA NEGATIVE (NEGATIVE); CANDIDA KRUSEI DNA NEGATIVE (NEGATIVE); TRICHOMONAS VAGINALIS DNA NEGATIVE (NEGATIVE)
== END 2022-06-03 23:59 | disposition home or self-care (01) ==
LOC: LAB.WC 08:00
PROVIDERS: ATTEND Obstetrics & Gynecology
DX: L29.2 Pruritus vulvae (principal)
CPT/HCPCS: 81514

== ENCOUNTER 2022-07-08 18:41 | Outpatient (CLI) | payer OTHER ==
--- NOTE | 2022-07-09 10:22 | Ultrasound Report ---
PROCEDURE: Pelvic w/Transvaginal INDICATIONS: OVARIAN CYST TECHNIQUE: Real-time scanning was performed of the pelvic organs, with image documentation. Additional endovagi nal scanning was necessary due to incomplete visualization of the adnexal and endometrial structures by transabdominal scanning. COMPARISON: None. FINDINGS: Uterus: Uterus is anteverted and normal in size at 11 x 7.5 x 5.7 cm. The myometrium is heterogeneo us. The endometrium measures 15.8mm in combined thickness. Ovaries: The right ovary measures 2.9 x 2.6 x 1.9 cm, with a calculated ovarian volume of 7.4 cc. T he left ovary measures 2.7 x 2.4 x 1.4 cm, with a calculated ovarian volume of 4.5 cc. The ovaries h ave a normal sonographic appearance. Less than 12 follicles can be seen in each ovary. No adnexal m asses are seen. There are dominant follicles in each ovary on the right measuring 1.9 cm in maximal dimension and on the left measuring 1.6 cm in maximal dimension. Other: No pathologic free abdominal or pelvic fluid. IMPRESSION: 1. Thickened endometrium at 1.58 cm recommend correlation with the patient's menstrual history. 2. Dominant follicles involving each ovary the right at 1.9 cm the left at 1.6 cm Reviewed by: Emre Patel MD on 07/09/2022 10:20 AM PST Approved by: Emre Patel MD on 07/09/2022 10:20 AM PST Station ID: [id number]
== END 2022-07-08 18:42 | disposition home or self-care (01) ==
LOC: DI 18:41
PROVIDERS: ATTEND Obstetrics & Gynecology
DX: N83.291 Other ovarian cyst, right side (principal); R93.89 Abnormal findings on diagnostic imaging of other specified body structures

== ENCOUNTER 2022-08-24 20:18 | Emergency (ER) | payer OTHER ==
[2022-08-24 20:29] VITALS: BP 126/79
[2022-08-24] MEDS ORDERED: DOXYCYCLINE 100 MG TABLET PO STA (21:33)
--- NOTE | 2022-08-24 21:36 | ED Physician Documentation ---
History of Present Illness - Stated complaint Stated Complaint: FACIAL PX,EAR PX - Chief complaint Chief Complaint: Heent - History obtained from History obtained from: Patient - Additonal information Additional information: 36-year-old woman, previously healthy, presents with recent viral upper respiratory infection with persistent sinus pressure, nasal congestion and severe ear fullness for the past 2 weeks. Patient states she has been using [id number] medications but has had no relief of symptoms. 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 - Past Surgical History Past Surgical History: No - Present Medications Home Medications: Ambulatory Orders Medication Instructions Recorded Confirmed Doxycycline Hyclate 100 mg PO BID 10 Days #20 tab 08/24/22 - Allergies Allergies/Adverse Reactions: Allergies Allergy/AdvReac Type Severity Reaction Status Date / Time Penicillins Allergy Unknown Verified 08/24/22 20:28 Sulfa (Sulfonamide Allergy Unknown Verified 08/24/22 20:28 Antibiotics) - Social History Does the pt smoke?: No Smoking Status: Never smoker Does the pt drink ETOH?: No Does the pt have substance abuse?: No - Immunizations Immunizations are current?: No Immunizations: TDAP >10years/unknown - POLST Patient has POLST: No PD ED PE NORMAL - Vitals Vital signs reviewed: Yes - General General: Alert and oriented X 3, No acute distress, Well developed/nourished - HEENT HEENT: Atraumatic, PERRL, EOMI, Ears normal, Moist mucous membranes, Pharynx benign, Other (BL nasal turbinates inflamed. frontal and maxillary sinuses ttp) - Neck Neck: Supple, no meningeal sign - Derm Derm: Normal color, Warm and dry Results - Vitals Vitals: Vital Signs - 24 hr 08/24/22 20:26 Temperature 36.5 C Heart Rate 104 H Respiratory 17 Rate Blood Pressure 126/79 O2 Saturation 100 Oxygen O2 Source Room air PD Medical Decision Making - ED course ED course: 36-year-old woman presented with acute sinusitis. First dose of antibiotics provided here in the emergency department. Prescription sent and symptomatic care discussed. Plan to follow-up with primary care provider and return to the emergency department for any new or worsening symptoms. Departure - Departure Disposition: 01 Home, Self Care Clinical Impression: Sinusitis Condition: Good Instructions: ED Sinusitis Abx Tx Prescriptions: Doxycycline Hyclate 100 mg PO BID 10 Days #20 tab Comments: He was seen in the emergency department for sinusitis (sinus infection). Take antibiotics as prescribed. Return to the emergency department if you have new or worsening symptoms or other concerns. Follow-up with [facility]. Electronic prescription was sent to [facility] [place].
== END 2022-08-24 21:39 | disposition home or self-care (01) ==
LOC: ED 20:18
DX: J01.10 Acute frontal sinusitis, unspecified (principal); J01.00 Acute maxillary sinusitis, unspecified
CPT/HCPCS: 99282; A9270

== ENCOUNTER 2022-08-27 15:06 | Outpatient (CLI) | payer OTHER | END 2022-08-27 15:07 | disposition home or self-care (01) | LOC: LAB 15:06 | PROVIDERS: ATTEND Physician Assistant | DX: K90.41 Non-celiac gluten sensitivity (principal); R10.9 Unspecified abdominal pain | CPT/HCPCS: 81599 ==

== ENCOUNTER 2022-09-02 08:00 | Outpatient (CLI) | payer OTHER ==
[2022-09-02 22:32] LABS: BACTERIAL VAGINOSIS DNA NEGATIVE (NEGATIVE); CANDIDA GLABRATA DNA NEGATIVE (NEGATIVE); CANDIDA GROUP DNA NEGATIVE (NEGATIVE); CANDIDA KRUSEI DNA NEGATIVE (NEGATIVE); TRICHOMONAS VAGINALIS DNA NEGATIVE (NEGATIVE)
== END 2022-09-02 23:59 | disposition home or self-care (01) ==
LOC: LAB.WC 08:00
PROVIDERS: ATTEND Obstetrics & Gynecology
DX: N90.89 Other specified noninflammatory disorders of vulva and perineum (principal); L65.9 Nonscarring hair loss, unspecified
CPT/HCPCS: 36415; 81514; 84443

== ENCOUNTER 2022-09-02 15:46 | Outpatient (CLI) | payer OTHER ==
[2022-09-02 16:30] LABS: THYROID STIMULATING HORMONE 0.69 uIU/mL (0.34-5.60)
== END 2022-09-02 15:47 | disposition home or self-care (01) ==
LOC: LAB 15:46
PROVIDERS: ATTEND Obstetrics & Gynecology
DX: L65.9 Nonscarring hair loss, unspecified (principal)
CPT/HCPCS: 36415; 84443

== ENCOUNTER 2022-11-23 19:02 | Emergency (ER) | payer OTHER ==
[2022-11-23 19:22] VITALS: BP 119/63
[2022-11-23] MEDS ORDERED: LIDOCAINE PATCH 5% TOP STA (20:22)
[2022-11-23] MEDS ORDERED: CYCLOBENZAPRINE 10 MG TABLET PO STA (20:23)
--- NOTE | 2022-11-23 20:25 | ED Physician Documentation ---
History of Present Illness - Stated complaint Stated Complaint: HEADACHE,NECK ACHE - Chief complaint Chief Complaint: Neuro - History obtained from History obtained from: Patient - Additonal information Additional information: Patient is a 36-year-old female presenting for evaluation of right-sided neck pain that has been present for at least a week since a snowboarding. Patient states that she was snowboarding Tuesday, Tuesday and Tuesday of last week. On Tuesday she did have a fall That she recalls where she Caught the edge of her snowboard and toppled over. She denies that she struck her head or had LOC. She was wearing a helmet. She states that she was able to continue snowboarding for the rest of the day but later that evening noticed some discomfort in the right side of her neck that has persisted. She continued to snowboard for the 2 following days. She states at times the pain radiates to her head. She states that the headache wraps around the front of her head and gradually started since she has been having the neck pain. She denies exertion at onset of her headache and denies thunderclap in intensity of the headache. Again she denies any known head injuries and does not take a blood thinner. She has been using acetaminophen and ibuprofen which do help. She describes the pain as an achiness and tightness. It is worse with certain movements. Review of Systems Constitutional: denies: Fever Eyes: denies: Photophobia Cardiac: denies: Chest pain / pressure Respiratory: denies: Dyspnea GI: denies: Abdominal Pain Musculoskeletal: reports: Neck pain Neurologic: reports: Headache. 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 : None HEENT: None Psych: None Musculoskeletal: None Derm: None - Past Surgical History Past Surgical History: No - Present Medications Home Medications: Ambulatory Orders Medication Instructions Recorded Confirmed Cyclobenzaprine [Flexeril] 10 mg PO TID PRN #20 tablet 11/23/22 Lidocaine Patch 5% [Lidoderm Patch] 1 patch TOP DAILY PRN #10 patch 11/23/22 - Allergies Allergies/Adverse Reactions: Allergies Allergy/AdvReac Type Severity Reaction Status Date / Time Penicillins Allergy Unknown Verified 11/23/22 19:22 Sulfa (Sulfonamide Allergy Unknown Verified 11/23/22 19:22 Antibiotics) - Social History Does the pt smoke?: No Smoking Status: Never smoker Does the pt drink ETOH?: No Does the pt have substance abuse?: No - Immunizations Immunizations are current?: No Immunizations: TDAP >10years/unknown - POLST Patient has POLST: No PD ED PE NORMAL - General General: Alert and oriented X 3, No acute distress, Well developed/nourished - HEENT HEENT: Atraumatic, PERRL, EOMI, Ears normal, Moist mucous membranes, Pharynx benign - Neck Neck: Supple, no meningeal sign, No bony TTP, C-Spine cleared by NEXUS criteria - Cardiac Cardiac: RRR, No murmur, Strong equal pulses - Respiratory Respiratory: No respiratory distress, Clear bilaterally - Abdomen Abdomen: Soft, Non tender - Back Back: No spinal TTP - Derm Derm: Warm and dry - Extremities Extremities: No deformity - Neuro Neuro: Alert and oriented X 3, dye can operator 2-12 intact, No motor deficit, No sensory de ficit, Normal speech Eye Opening: Spontaneous Motor: Obeys Commands Verbal: Oriented GCS Score: 15 PD ED PE EXPANDED - HEENT HEENT Visual: 1 - tenderness (tightness) Results - Vitals Vitals: Vital Signs - 24 hr 11/23/22 11/23/22 11/23/22 19:19 19:25 19:31 Temperature 36.7 C Heart Rate 90 Respiratory 16 15 16 Rate Blood Pressure 119/63 O2 Saturation 100 11/23/22 11/23/22 20:04 20:30 Temperature Heart Rate Respiratory 15 16 Rate Blood Pressure O2 Saturation Oxygen O2 Source Room air PD Medical Decision Making - ED course ED course: Patient presenting for evaluation of head and neck pain since snowboarding last week. She denies head injury and does not take a blood thinner.Her neuro exam is normal.She does not have any red flag signs or symptoms in regards to her headache and I do not feel that neuroimaging would be helpful at this time. Her cervical spine is cleared by Nexus criteria. She does have tenderness on the right side of her neck although she has full range of motion. She has visible spasm over the right trapezius. Discussed that her symptoms are likely related to a muscle strain from a snowboarding with continued activity. We discussed options for treatment and she is agreeable to trial of lidocaine patches and muscle relaxer. We also discussed that a CT cervical spine would not be indicated at this time based on the Nexus criteria.She is comfortable with holding off on imaging. She is counseled on treatment plan and advised on concerning symptoms to return for. Departure - Departure Disposition: Home, Self Care Clinical Impression: Neck strain Condition: Stable Instructions: ED Sprain Strain Neck Prescriptions: Cyclobenzaprine [Flexeril] 10 mg PO TID PRN #20 tablet PRN Reason: Spasms Lidocaine Patch 5% [Lidoderm Patch] 1 patch TOP DAILY PRN #10 patch PRN Reason: pain Comments: Your symptoms are likely related to a strain in your neck from your snowboarding accident. There Is a lot of tightness and tension in your muscles and I believe a muscle relaxer will be helpful with easing your symptoms. I am sending a prescription for a medication called Flexeril to the [facility] pharmacy in [place]. I will also send a prescription for lidocaine patches. Please use these as directed. If you develop any new or worsening symptoms please consider return to the ER, otherwise I would encourage close follow-up with your PCP. Discharge Date/Time: 11/23/22 20:32
== END 2022-11-23 20:32 | disposition home or self-care (01) ==
LOC: ED 19:02
DX: S16.1XXA Strain of muscle, fascia and tendon at neck level, initial encounter (principal); V00.311A Fall from snowboard, initial encounter; Y93.23 Activity, snow (alpine) (downhill) skiing, snowboarding, sledding, tobogganing and snow tubing
CPT/HCPCS: 99282; 99283; A9270

== ENCOUNTER 2022-11-25 17:41 | Emergency (ER) | payer OTHER ==
[2022-11-25 17:48] VITALS: BP 140/88
[2022-11-25] MEDS ORDERED: SODIUM CHLORIDE 0.9% 1,000 ML IV STA (18:23)
[2022-11-25] MEDS ORDERED: ONDANSETRON 4 MG/2 ML VIAL IVP STA (18:23)
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
[2022-11-25 18:53] LABS: BASOPHILS % (AUTO) 0.4 %; EOSINOPHILS # (AUTO) 0.2 10^3/uL (0.0-0.7); HCT - HEMATOCRIT 44.8 % (37.0-47.0); HGB - HEMOGLOBIN 14.8 g/dL (12.0-16.0); LYMPHOCYTES # (AUTO) 1.5 10^3/uL (1.5-3.5); LYMPHOCYTES % (AUTO) 19.2 %; MEAN CORPUSCULAR HEMOGLOBIN 31.2 pg (27.0-31.0); MEAN CORPUSCULAR VOLUME 94.3 fL (81.0-99.0); MEAN PLATELET VOLUME 10.4 fL (7.9-10.8); MONOCYTES # (AUTO) 0.5 10^3/uL (0.0-1.0); MONOCYTES % (AUTO) 6.4 %; NEUTROPHILS # (AUTO) 5.5 10^3/uL (1.5-6.6); NEUTROPHILS % (AUTO) 70.7 %; PLT - PLATELET COUNT 289 10^3/uL (130-450); RED BLOOD COUNT 4.75 10^6/uL (4.20-5.40); RED CELL DISTRIBUTION WIDTH 11.5 % (12.0-15.0); WHITE BLOOD COUNT 7.7 x10^3/uL (4.8-10.8)
[2022-11-25 19:02] LABS: ALBUMIN 4.1 g/dL (3.2-5.5); ALBUMIN/GLOBULIN RATIO 1.2 (1.0-2.2); BILIRUBIN,TOTAL 0.4 mg/dL (0.2-1.0); CALCIUM 8.9 mg/dL (8.5-10.3); CREATININE 0.7 mg/dL (0.4-1.0); POTASSIUM 3.5 mmol/L (3.5-5.0); TOTAL PROTEIN 7.4 g/dL (6.7-8.2)
[2022-11-25] MEDS ORDERED: methylPREDNISolone SUCCINATE 125 MG/2 ML VIAL IVP STA (19:05)
[2022-11-25] MEDS ORDERED: MORPHINE 2 MG/ML CARPUJECT IVP STA (19:28)
[2022-11-25 20:18] LABS: BILIRUBIN,URINE NEGATIVE (NEGATIVE); GLUCOSE, URINE (UA) NEGATIVE (NEGATIVE); KETONES,URINE (UA) NEGATIVE (NEGATIVE); LEUKOCYTE ESTERASE, URINE NEGATIVE (NEGATIVE); NITRITE,URINE NEGATIVE (NEGATIVE); OCCULT BLOOD,URINE NEGATIVE (NEGATIVE); PROTEIN,URINE NEGATIVE (NEGATIVE); UROBILINOGEN,URINE 0.2 (NORMAL) E.U./dL (NORMAL)
[2022-11-25 20:22] LABS: CLARITY,URINE CLEAR (CLEAR); HCG UR QUAL NEGATIVE
[2022-11-25 20:23] LABS: B. PARAPERTUSSIS- RESP PCR PAN NOT DETECTED; B. PERTUSSIS- RESP PCR PANEL NOT DETECTED; C. PNEUMONIAE- RESP PCR PANEL NOT DETECTED; CORONAVIRUS 229E-RESP PCR NOT DETECTED; CORONAVIRUS HKU1-RESP PCR NOT DETECTED; CORONAVIRUS NL63-RESP PCR NOT DETECTED; CORONAVIRUS OC43-RESP PCR NOT DETECTED; HUMAN METAPNEUMOVIRUS NOT DETECTED; INFLUENZA A- RESP PCR PANEL NOT DETECTED; INFLUENZA B - RESP PCR PANEL NOT DETECTED; M. PNEUMONIAE- RESP PCR PANEL NOT DETECTED; PARAINFLUENZA VIRUS 1 NOT DETECTED; PARAINFLUENZA VIRUS 2 NOT DETECTED; PARAINFLUENZA VIRUS 3 NOT DETECTED; PARAINFLUENZA VIRUS 4 NOT DETECTED; RHINOVIRUS/ENTEROVIRUS NOT DETECTED; RSV- RESP PCR PANEL NOT DETECTED; SARS-CoV-2 -RESP PCR PANEL NOT DETECTED
[2022-11-25] MEDS ORDERED: HYDROcod/ACET 5/325 Prepack 4 PO STA (21:34)
--- NOTE | 2022-11-25 21:43 | CT Report ---
PROCEDURE: HEAD WO INDICATIONS: severe headache post trauma TECHNIQUE: Noncontrast 4.5 mm thick angled axial sections acquired from the foramen magnum to the vertex. For r adiation dose reduction, the following was used: automated exposure control, adjustment of mA and/or kV according to patient size. COMPARISON: None. FINDINGS: Image quality: Excellent. CSF spaces: Basal cisterns are patent. No extra-axial fluid collections. Ventricles are normal in size and shape. Brain: No intracranial hemorrhage, mass, or mass effect. Bennett-white matter interface appears preser raad. Skull and face: Calvarium and visualized facial bones are intact, without suspicious lesions. Sinuses: There is partial fluid opacification within the partially visualized left maxillary sinus. T here is also partial fluid opacification of the left mastoid air cells suggestive of mastoiditis. IMPRESSION: 1. No acute intracranial abnormality. 2. Partial fluid opacification of left mastoid air cells suggestive of mastoiditis. 3. Partially visualized fluid within the left maxillary sinus Reviewed by: Yoel Dias MD on 11/25/2022 9:42 PM PDT Approved by: Yoel Dias MD on 11/25/2022 9:42 PM PDT Station ID: [id number]
== END 2022-11-25 21:41 | disposition home or self-care (01) ==
LOC: ED 17:41
DX: G44.319 Acute post-traumatic headache, not intractable (principal); Z20.822 Contact with and (suspected) exposure to COVID-19
CPT/HCPCS: 36415; 80053; 81001; 81003; 81025; 83605; 83690; 85025; 87040; 87086; 87633; 96374; 96375; 99284

== ENCOUNTER 2022-11-27 19:15 | Emergency (ER) | payer OTHER ==
[2022-11-27] MEDS ORDERED: OXYMETAZOLINE HCL 100 SPRAYS BOTTLE NAS STA (19:42)
[2022-11-27] MEDS ORDERED: PSEUDOEPHEDRINE 30 MG TABLET PO STA (19:42)
[2022-11-27] MEDS ORDERED: CETIRIZINE 10 MG TABLET PO STA (19:42)
[2022-11-27] MEDS ORDERED: DOXYCYCLINE 100 MG TABLET PO STA (19:43)
--- NOTE | 2022-11-27 19:48 | ED Physician Documentation ---
History of Present Illness - Stated complaint Stated Complaint: HEADACHE - Chief complaint Chief Complaint: Neuro - History obtained from History obtained from: Patient - Additonal information Additional information: Patient is a 36-year-old female who presents to the emergency department complaining of an ongoing headache. She has been seen here x2 previously. She reportedly had an accidents where she fell while snowboarding 2 weeks ago in [place]. She states no loss of consciousness. No vomiting. She states that she does feel like her neck is swollen and sore, initially thought that the head aches may be due to to trauma, but states that the medication she has been placed on did not really help including the muscle relaxant and pain medication. She feels like there is pressure along the forehead. Worse with bending over and changing positions. She states it feels similar to her prior sinus infection that she had in July of last year. Patient denies any possibility of . 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 : None HEENT: None Psych: None Musculoskeletal: None Derm: None - Past Surgical History Past Surgical History: No - Present Medications Home Medications: Ambulatory Orders Medication Instructions Recorded Confirmed Cyclobenzaprine [Flexeril] 10 mg PO TID PRN #20 tablet 11/23/22 Lidocaine Patch 5% [Lidoderm Patch] 1 patch TOP DAILY PRN #10 patch 11/23/22 HYDROcod/ACET 5/325 Prepack 4 1 tablet PO Q6HR PRN #4 tablet 11/25/22 [NORCO 5/325 Prepack 4] Cetirizine HCl/Pseudoephedrine 1 each PO BID PRN #30 tab 11/27/22 [Zyrtec-D Tablet] Doxycycline Monohydrate 100 mg PO BID #20 cap 11/27/22 Oxycodone HCl/Acetaminophen 1 - 2 each PO Q6H PRN #10 tablet 11/27/22 [Percocet 5-325 mg Tablet] MDD 6 tabs - Allergies Allergies/Adverse Reactions: Allergies Allergy/AdvReac Type Severity Reaction Status Date / Time Penicillins Allergy Unknown Verified 11/27/22 19:18 Sulfa (Sulfonamide Allergy Unknown Verified 11/27/22 19:18 Antibiotics) - Social History Does the pt smoke?: No Smoking Status: Never smoker Does the pt drink ETOH?: No Does the pt have substance abuse?: No - Immunizations Immunizations are current?: No Immunizations: TDAP >10years/unknown - POLST Patient has POLST: No PD ED PE NORMAL - Vitals Vital signs reviewed: Yes - General General: Alert and oriented X 3, No acute distress - HEENT HEENT: PERRL, EOMI, Ears normal, Moist mucous membranes, Pharynx benign, Other (Tender to palpation over the bilateral frontal and maxillary sinuses. 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 She does have what appears to be a fluid-filled left maxillary sinus and right frontal sinus. We will radha t her for sinusitis and see how her symptoms progress. Patient is penicillin and sulfa allergic, therefore will place on doxycycline. Will place on pseudoephedrine, Zyrtec as well. Patient is well-appearing, nontoxic. Afebrile. No indication for repeat imaging or repeat lab work. Patient counseled regarding signs and symptoms for which I believe and urgent re- evaluation would be necessary. Patient with good understanding of and agreement to plan and is comfortable going home at this time This document was made in part using voice recognition software. While efforts are made to proofread this document, sound alike and grammatical errors may occur. Departure - Departure Disposition: 01 Home, Self Care Clinical Impression: Sinusitis Qualifiers: Sinusitis location: unspecified location Chronicity: acute Recurrence: non- recurrent Qualified Code(s): J01.90 - Acute sinusitis, unspecified Condition: Good Instructions: ED Sinusitis Abx Tx Follow-Up: Your,doctor in 1 week [Other] Prescriptions: Doxycycline Monohydrate 100 mg PO BID #20 cap Oxycodone HCl/Acetaminophen [Percocet 5-325 mg Tablet] 1 - 2 each PO Q6H PRN #10 tablet MDD 6 tabs PRN Reason: pain Cetirizine HCl/Pseudoephedrine [Zyrtec-D Tablet] 1 each PO BID PRN #30 tab PRN Reason: nasal congestion Comments: Your prescriptions were sent to [facility] in [place]. You do have fluid in your sinuses on your CT scan and your exam is consistent with sinusitis, therefore we will place you on decongestants, antibiotics and pain medication. You can use a medication such as Afrin, twice daily but do not use this for more than 2 to 3 days as it can cause rebound swelling and headaches. I am prescribing a short course of narcotic pain medication for you. These are potentially dangerous and addictive medications that should be used carefully. These medications may constipate you. Take an hokk-dmw-knajnib stool softener (docusate) twice daily with plenty of water while taking these medications. If you go 24 hours without a bowel movement, take jaxs-lpa-hhbfzua miralax, per package instructions. Do not drink or drive while taking these medications. If you received narcotic or sedating medications while in the emergency department, do not drive for 24 hours. Store this medication in a safe, secure place and out of reach of children. It is a violation of federal law to give or sell this medication to another person or to use in a manner other than prescribed. The ED will not refill narcotic prescriptions, including prescriptions lost or stolen. To dispose of unwanted medications: 1. [facility] at [address] in [place] has a medication drop box. They accept prescription medications (in pill form) Tuesday through Tuesday 9:00 a.m. to 5:00 p.m. 2. The [facility] [employer] accepts prescription medications (in pill form only) for disposal year round. Call for more information. 3. Contact the [facility] for the next [facility] sponsored prescription drug collection event. , [phone], or [phone]; Discharge Date/Time: 11/27/22 20:27
[2022-11-27] MEDS ORDERED: oxyCODONE 5 MG TABLET PO STA (20:04)
[2022-11-27 20:27] VITALS: BP 120/78
== END 2022-11-27 20:27 | disposition home or self-care (01) ==
LOC: ED 19:15
DX: J01.90 Acute sinusitis, unspecified (principal)
CPT/HCPCS: 99283; A9270

== ENCOUNTER 2022-11-28 18:14 | Emergency (ER) | payer OTHER ==
[2022-11-28] MEDS ORDERED: KETOROLAC 30 MG/ML VIAL IVP STA (19:20)
[2022-11-28] MEDS ORDERED: METOCLOPRAMIDE 10 MG/2 ML VIAL IVP STA (19:20)
[2022-11-28] MEDS ORDERED: diphenhydrAMINE INJ 50 MG/ML VIAL IVP STA (19:20)
[2022-11-28] MEDS ORDERED: SODIUM CHLORIDE 0.9% 1,000 ML IV STA (19:20)
[2022-11-28 20:28] LABS: BASOPHILS % (AUTO) 0.3 %; EOSINOPHILS # (AUTO) 0.1 10^3/uL (0.0-0.7); EOSINOPHILS % (AUTO) 0.7 %; HCT - HEMATOCRIT 41.2 % (37.0-47.0); HGB - HEMOGLOBIN 13.8 g/dL (12.0-16.0); LYMPHOCYTES # (AUTO) 0.9 10^3/uL (1.5-3.5); LYMPHOCYTES % (AUTO) 10.2 %; MEAN CORPUSCULAR HEMOGLOBIN 31.4 pg (27.0-31.0); MEAN CORPUSCULAR HGB CONC 33.5 g/dL (32.0-36.0); MEAN CORPUSCULAR VOLUME 93.6 fL (81.0-99.0); MEAN PLATELET VOLUME 10.3 fL (7.9-10.8); MONOCYTES # (AUTO) 0.4 10^3/uL (0.0-1.0); MONOCYTES % (AUTO) 4.8 %; NEUTROPHILS # (AUTO) 7.5 10^3/uL (1.5-6.6); NEUTROPHILS % (AUTO) 83.9 %; PLT - PLATELET COUNT 297 10^3/uL (130-450); RED CELL DISTRIBUTION WIDTH 11.4 % (12.0-15.0)
--- NOTE | 2022-11-28 20:35 | ED Physician Documentation ---
PD HPI HEADACHE - Stated complaint Stated Complaint: NAUSEA/VOMIT - Chief complaint Chief Complaint: Heent - History obtained from History obtained from: Patient, Other - Additional information Additional information: Patient is a 36-year-old female presenting for evaluation of a frontal headache that she describes as a pressure sensation with a associated nausea and vomiting.It has been worsening over the past 4 days. This is her fourth visit in less than a week to the emergency department for similar symptoms. I saw her on November 23 for right-sided neck pain that appeared related to recent snowboard injury. She did not have a headache at that time there was no head trauma Or an abnormal neuro exam to warrant imaging. She was seen again on November [address] head noncontrast was obtained which was negative for bleed.She was seen again last night and thought to have a sinus infection after review of CT scan so she was started on medications for that. She reports having nausea and vomiting and unable to keep down the antibiotics. She denies any new injuries, fever, change in vision, focal weakness. She does not take a blood thinner.She denies chest pain, difficulty breathing, coughing. She does report having some left-sided abdominal pain. She denies concerns for , denies dysuria or hematuria. 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 HEENT: None Psych: None Musculoskeletal: None Derm: None - Past Surgical History Past Surgical History: No - Present Medications Home Medications: Ambulatory Orders Medication Instructions Recorded Confirmed Cyclobenzaprine [Flexeril] 10 mg PO TID PRN #20 tablet 11/23/22 Lidocaine Patch 5% [Lidoderm Patch] 1 patch TOP DAILY PRN #10 patch 11/23/22 HYDROcod/ACET 5/325 Prepack 4 1 tablet PO Q6HR PRN #4 tablet 11/25/22 [NORCO 5/325 Prepack 4] Cetirizine HCl/Pseudoephedrine 1 each PO BID PRN #30 tab 11/27/22 [Zyrtec-D Tablet] Doxycycline Monohydrate 100 mg PO BID #20 cap 11/27/22 Oxycodone HCl/Acetaminophen 1 - 2 each PO Q6H PRN #10 tablet 11/27/22 [Percocet 5-325 mg Tablet] MDD 6 tabs Ondansetron Odt [Zofran] 4 mg TL Q6H PRN #10 tablet 11/28/22 - Allergies Allergies/Adverse Reactions: Allergies Allergy/AdvReac Type Severity Reaction Status Date / Time Penicillins Allergy Unknown Verified 11/28/22 18:25 Sulfa (Sulfonamide Allergy Unknown Verified 11/28/22 18:25 Antibiotics) - Social History Does the pt smoke?: No Smoking Status: Never smoker Does the pt drink ETOH?: No Does the pt have substance abuse?: No - Immunizations Immunizations are current?: No Immunizations: TDAP >10years/unknown - POLST Patient has POLST: No PD ED PE NORMAL - General General: Alert and oriented X 3, No acute distress, Well developed/nourished - HEENT HEENT: Atraumatic, PERRL, EOMI, Moist mucous membranes, Pharynx benign - Neck Neck: Supple, no meningeal sign, No bony TTP - Cardiac Cardiac: RRR - Respiratory Respiratory: No respiratory distress, Clear bilaterally - Abdomen Abdomen: Normal bowel sounds, Soft, Non distended, Other (Mild L sided abdominal tenderness) - Back Back: No spinal TTP - Derm Derm: Warm and dry - Extremities Extremities: No edema - Neuro Neuro: Alert and oriented X 3, 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, No motor deficit, No sensory d eficit, Normal speech Eye Opening: Spontaneous Motor: Obeys Commands Verbal: Oriented GCS Score: 15 Results - Vitals Vitals: Vital Signs - 24 hr 11/28/22 11/28/22 18:23 22:04 Temperature 36.0 C L Heart Rate 79 80 Respiratory 15 15 Rate Blood Pressure 121/81 H 116/70 O2 Saturation 100 100 Oxygen O2 Source Room air - Labs Labs: Laboratory Tests 11/28/22 11/28/22 11/28/22 20:20 20:20 20:56 WBC 9.0 RBC 4.40 Hgb 13.8 Hct 41.2 MCV 93.6 MCH 31.4 H MCHC 33.5 RDW 11.4 L Plt Count 297 MPV 10.3 Neut # (Auto) 7.5 H Lymph # (Auto) 0.9 L [place] # (Auto) 0.4 Eos # (Auto) 0.1 Baso # (Auto) 0.0 Absolute Nucleated RBC 0.00 Nucleated RBC % 0.0 Sodium 137 Potassium 4.3 Chloride 104 Carbon Dioxide 26 Anion Gap 7.0 BUN 17 Creatinine 0.6 Estimated GFR (MDRD) 114 Glucose 108 H Calcium 9.0 Total Bilirubin 0.7 AST 17 ALT 17 Alkaline Phosphatase 51 Total Protein 7.1 Albumin 3.9 Globulin 3.2 Albumin/Globulin Ratio 1.2 Lipase 29 Urine Color YELLOW Urine Clarity CLEAR Urine pH 7.0 Ur Specific [place] 1.015 Urine Protein NEGATIVE Urine Glucose (UA) NEGATIVE Urine Ketones TRACE Urine Occult Blood NEGATIVE Urine Nitrite NEGATIVE Urine Bilirubin NEGATIVE Urine Urobilinogen 0.2 (NORMAL) Ur Leukocyte Esterase NEGATIVE Ur Microscopic Review NOT INDICATED Urine Culture Comments NOT INDICATED Urine HCG, Qual NEGATIVE PD Medical Decision Making - ED course Complexity details: reviewed results, re-evaluated patient, d/w patient, d/w family ED course: Patient is a 36-year-old female presenting for evaluation of frontal headache with nausea and vomiting.She has been seen here this week with similar symptoms Including a negative noncontrast head CT.Her neuro exam is normal. She has no meningeal signs on exam to suggest meningitis or subarachnoid hemorrhage.She has a frontal headache Was recently prescribed medication for sinus infection. No signs of temporal arteritis on exam.Patient was given migraine cocktail with improvement in her symptoms. On initial exam she did have some mild left-sided abdominal tenderness so we decided to pursue further evaluation with CT scan. CT demonstrates a small left ovarian cyst. Her exam does not suggest ovarian torsion. Repeat abdominal exam is benign.She was counseled on need for close follow-up with her PCM at the [facility] as well as strict return precautions. She is pain-free at discharge and ambulating without difficulty. She was given a prescription for Zofran to use as needed. Departure - Departure Disposition: 01 Home, Self Care Clinical Impression: Frontal headache, Abdominal pain, Nausea & vomiting Condition: Stable Instructions: ED Abdominal Pain Female Non-Specific Abdominal Pain, ED Headache Migraine Follow-Up: [facility] [Provider Group] Prescriptions: Ondansetron Odt [Zofran] 4 mg TL Q6H PRN #10 tablet PRN Reason: Nausea / Vomiting Comments: Your labs today are reassuring and normal. The CT scan of your abdomen and pelvis does not show any significant abnormalities. There is a small cyst on the left ovary which is likely a physiologic cyst.I would recommend close follow-[facility] with [facility] I will send medications to help you with your nausea to the [facility] [place] Return to the emergency department At anytime with any new or worsening symptoms. Discharge Date/Time: 11/28/22 23:00
[2022-11-28 20:40] LABS: ALBUMIN 3.9 g/dL (3.2-5.5); ALBUMIN/GLOBULIN RATIO 1.2 (1.0-2.2); BILIRUBIN,TOTAL 0.7 mg/dL (0.2-1.0); CREATININE 0.6 mg/dL (0.4-1.0); POTASSIUM 4.3 mmol/L (3.5-5.0); TOTAL PROTEIN 7.1 g/dL (6.7-8.2)
[2022-11-28] MEDS ORDERED: MORPHINE 2 MG/ML CARPUJECT IVP STA (20:57)
[2022-11-28 21:01] LABS: BILIRUBIN,URINE NEGATIVE (NEGATIVE); GLUCOSE, URINE (UA) NEGATIVE (NEGATIVE); KETONES,URINE (UA) TRACE mg/dL (NEGATIVE); LEUKOCYTE ESTERASE, URINE NEGATIVE (NEGATIVE); NITRITE,URINE NEGATIVE (NEGATIVE); OCCULT BLOOD,URINE NEGATIVE (NEGATIVE); PROTEIN,URINE NEGATIVE (NEGATIVE); UROBILINOGEN,URINE 0.2 (NORMAL) E.U./dL (NORMAL)
[2022-11-28] MEDS ORDERED: iohexoL-300 100 ML VIAL ONE (21:04)
[2022-11-28 21:05] LABS: CLARITY,URINE CLEAR (CLEAR); HCG UR QUAL NEGATIVE
[2022-11-28] MEDS ORDERED: iohexoL-300 100 ML VIAL IVP ONE (21:38)
[2022-11-28 22:04] VITALS: BP 116/70
--- NOTE | 2022-11-28 22:25 | CT Report ---
PROCEDURE: ABDOMEN/PELVIS W INDICATIONS: L sided abd tenderness CONTRAST: 100 ML OMNI 300 TECHNIQUE: After the administration of intravenous contrast, 5 mm thick sections acquired from the diaphragms to the symphysis. 5 mm thick coronal and sagittal reformats were acquired. For radiation dose reducti on, the following was used: automated exposure control, adjustment of mA and/or kV according to shena ent size. COMPARISON: Pelvic ultrasound 07/08/2022 FINDINGS: Image quality: Excellent. Lung bases:There is minimal dependent atelectasis. Heart: Heart is normal in size. There is mild concentric wall thickening of the visualized distal es ophagus. ABDOMEN: Liver:There is mild focal fatty infiltration in the anterior left hepatic lobe. Gallbladder: Within normal limits without calcified gallstones. Biliary ducts: No biliary ductal dilatation. Pancreas: Unremarkable. Spleen: Normal in size. Adrenal Glands: No adrenal nodules. Kidneys and Ureters: No hydronephrosis. Stomach and Bowel: Stomach, small bowel loops, and colon are normal in caliber and wall thickness. T he appendix is normal. There is colonic diverticulosis without acute diverticulitis. Peritoneum: No abnormal intraperitoneal fluid. No free air. Ventral Wall: No hernia. Abdominal Nodes: No retroperitoneal or mesenteric adenopathy by size criteria. Vessels: Aorta and inferior vena cava are normal in size. PELVIS: Pelvic Organs: There is a thin-walled left ovarian cyst measuring up to 2.3 cm. There is enlargement and hyperemia of the uterus with thickening of the endometrium likely reflect physiologic changes. Bladder: Unremarkable. Pelvic Nodes: No enlarged lymph nodes. Miscellaneous: No inguinal hernias. Bones: Visualized osseous structures demonstrate no suspicious lesions. IMPRESSION: 1. Colonic diverticulosis without acute diverticulitis. 2. Small left ovarian cyst likely represents a physiologic cyst. Further evaluation may obtained with pelvic ultrasound if clinically indicated. 3. No evidence of appendicitis. Reviewed by: Yoel Dias MD on 11/28/2022 10:24 PM PDT Approved by: Yoel Dias MD on 11/28/2022 10:24 PM PDT Station ID: [id number]
[2022-11-28] MEDS ORDERED: ONDANSETRON ODT 4 MG Prepack 2 TL PRN (22:36)
== END 2022-11-28 23:00 | disposition home or self-care (01) ==
LOC: ED 18:14
DX: R51.9 Headache, unspecified (principal); R10.9 Unspecified abdominal pain; R11.2 Nausea with vomiting, unspecified; Z79.899 Other long term (current) drug therapy
CPT/HCPCS: 36415; 74177; 80053; 81003; 81025; 83690; 85025; 96374; 96375; 99283; 99285; J1200; J2765; Q9967; 81001; 87086

== ENCOUNTER 2022-12-02 13:26 | Outpatient (CLI) | payer OTHER | END 2022-12-02 23:59 | disposition critical access hospital (66) | LOC: EMS 13:26 | DX: R51.9 Headache, unspecified (principal); R11.2 Nausea with vomiting, unspecified; R20.2 Paresthesia of skin ==

== ENCOUNTER 2022-12-02 14:13 | Emergency (ER) | payer OTHER ==
--- NOTE | 2022-12-02 15:05 | ED Physician Documentation ---
PD HPI HEADACHE - Stated complaint Stated Complaint: SOA, VOMIT - Chief complaint Chief Complaint: Heent - History obtained from History obtained from: Patient - History of Present Illness Timing - onset: How many days ago (10) Timing - onset during: Light activity Timing - duration: Days (10) Timing - details: Gradual onset, Still present Worst headache ever?: Worst headache ever? Location: Front (headache frontal and temples area. Neck pain poserior and wraps up over top of head.) Quality: Aching, Stabbing Associated symptoms: Nausea, Vomiting, Numbness (she states she is feeling some numbness of left arm last night/today.). No: Fever, Stiff neck, Weakness, Syncope Improved by: No: Meds Worsened by: No: Light, Noise Contributing factors: Trauma (fell snowboarding the week prior. See prior ED visit on 11/23/22 for description and initial ER visit for this.). No: Anticoagulated Similar symptoms before: Has not had sx before Recently seen: Emergency Dept (has had several ER visits for this so far.) Review of Systems Constitutional: denies: Fever, Chills Eyes: denies: Loss of vision, Decreased vision Nose: reports: Sinus pressure / pain. denies: Rhinorrhea / runny nose, Congestion Throat: denies: Sore throat Cardiac: denies: Chest pain / pressure Respiratory: denies: Cough GI: reports: Nausea, Vomiting. 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 : None HEENT: None Psych: None Musculoskeletal: None Derm: None - Past Surgical History Past Surgical History: No - Present Medications Home Medications: Ambulatory Orders Medication Instructions Recorded Confirmed Cyclobenzaprine [Flexeril] 10 mg PO TID PRN #20 tablet 11/23/22 Lidocaine Patch 5% [Lidoderm Patch] 1 patch TOP DAILY PRN #10 patch 11/23/22 HYDROcod/ACET 5/325 Prepack 4 1 tablet PO Q6HR PRN #4 tablet 11/25/22 [NORCO 5/325 Prepack 4] Cetirizine HCl/Pseudoephedrine 1 each PO BID PRN #30 tab 11/27/22 [Zyrtec-D Tablet] Doxycycline Monohydrate 100 mg PO BID #20 cap 11/27/22 Oxycodone HCl/Acetaminophen 1 - 2 each PO Q6H PRN #10 tablet 11/27/22 [Percocet 5-325 mg Tablet] MDD 6 tabs Ondansetron Odt [Zofran] 4 mg TL Q6H PRN #10 tablet 11/28/22 HYDROcod/ACETAM 5/325 [[place] 5/325] 1 ea PO Q6H PRN #18 tablet 12/02/22 Ondansetron Odt [Zofran] 4 mg TL Q6H PRN #20 tablet 12/02/22 Promethazine [Phenergan] 25 mg PO Q6H PRN #10 tab 12/02/22 cephALEXin [Keflex] 500 mg PO TID #15 cap 12/02/22 dexAMETHasone [Decadron] 4 mg PO DAILY #10 tablet 12/02/22 - Allergies Allergies/Adverse Reactions: Allergies Allergy/AdvReac Type Severity Reaction Status Date / Time Penicillins Allergy Unknown Verified 12/02/22 14:45 Sulfa (Sulfonamide Allergy Unknown Verified 12/02/22 14:45 Antibiotics) - Social History Does the pt smoke?: No Smoking Status: Never smoker Does the pt drink ETOH?: No Does the pt have substance abuse?: No - Immunizations Immunizations are current?: No Immunizations: TDAP >10years/unknown - POLST Patient has POLST: No PD ED PE NORMAL - Vitals Vital signs reviewed: Yes - General General: Alert and oriented X 3, Well developed/nourished - HEENT HEENT: PERRL, EOMI - Neck Neck: Supple, no meningeal sign, No bony TTP, No adenopathy, Other (focal trigger point tenderness bilateral upper trapezius insertion at occipital ridge. Palpation at these areas causes headache and frontal area to hurt worse. 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, No motor deficit, No sensory deficit, Normal speech, Other Eye Opening: Spontaneous Motor: Obeys Commands Verbal: Oriented GCS Score: 15 Results - Vitals Vitals: Vital Signs - 24 hr 12/02/22 12/02/22 12/02/22 14:39 16:23 18:00 Temperature 36.4 C L 36.5 C 36.7 C Heart Rate 89 77 82 Respiratory 18 18 18 Rate Blood Pressure 133/71 H 114/69 113/71 O2 Saturation 98 98 97 12/02/22 20:00 Temperature Heart Rate 102 H Respiratory 18 Rate Blood Pressure 127/81 H O2 Saturation 99 Oxygen O2 Source Room air - Labs Labs: Laboratory Tests 12/02/22 12/02/22 12/02/22 15:01 15:01 15:01 WBC 6.2 RBC 4.79 Hgb 14.8 Hct 44.8 MCV 93.5 MCH 30.9 MCHC 33.0 RDW 11.5 L Plt Count 287 MPV 9.9 Neut # (Auto) 4.0 Lymph # (Auto) 1.4 L [place] # (Auto) 0.5 Eos # (Auto) 0.2 Baso # (Auto) 0.0 Absolute Nucleated RBC 0.00 Nucleated RBC % 0.0 ESR PT 12.5 INR 1.1 Sodium 136 Potassium 3.5 Chloride 103 Carbon Dioxide 25 Anion Gap 8.0 BUN 19 Creatinine 0.8 Estimated GFR (MDRD) 81 L Glucose 103 H Calcium 9.1 Total Bilirubin 0.8 AST 21 ALT 44 Alkaline Phosphatase 58 Total Protein 7.5 Albumin 4.2 Globulin 3.3 Albumin/Globulin Ratio 1.3 Lipase 28 Serum HCG, Qual 12/02/22 12/02/22 15:01 15:01 WBC RBC Hgb Hct MCV MCH MCHC RDW Plt Count MPV Neut # (Auto) Lymph # (Auto) [place] # (Auto) Eos # (Auto) Baso # (Auto) Absolute Nucleated RBC Nucleated RBC % ESR 9 PT INR Sodium Potassium Chloride Carbon Dioxide Anion Gap BUN Creatinine Estimated GFR (MDRD) Glucose Calcium Total Bilirubin AST ALT Alkaline Phosphatase Total Protein Albumin Globulin Albumin/Globulin Ratio Lipase Serum HCG, Qual NEGATIVE - Rads (name of study) head and neck agnio Relevant Findings:: Prelim report reviewed, See rad report PD Medical Decision Making - ED course Complexity details: considered differential, d/w patient ED course: onset of headache and neck pain about 10 days ago. Had had injury snowboarding the week prior and falling and struck head. Pain in neck but was able to continue on the slopes and back to [facility].Had headache start week after. Seen in ER for the headache and treated as possible migraine and did improve. However has continued with headache frontal area and neck pain upper bilaterally essentially every day. Seen in ER few times for it. Give pain meds and NSAIDs. treated with Doxy on recent visit for possible sinusitis seen on head CT. She states the neck pain component has continued and worsened. She has had severe pain head and neck. Given that it seemed tocome somewhat after an injury (though a week later), i would consider the potential of posterior outdoor recreation specialist process such as vertebral artery dissection. Also neck process such as disc herniation. Had had head CT, but can now get cervical CT, and to do as angio to eval vascular aspect. She was given IV meds of Toradol and Inapsine for nausea and to target as migrainous GRAHAM. Her headache did moderately well improve. I did trigger point injection with Kenalog and Bupivocaine at upper trapezius insertion area bilaterally. Recheck cyrus and she says it did help resonably well with only mild pain now. She went for ct and at time of shift change, was awaiting the Radiology report. Her nausea may have been enhanced with PO Doxy. Can change it to Keflex. For the headache/neck pain, can use muscle relaxant and steroids, pain meds. These were sent to her pharmacy. Departure - Departure Disposition: 01 Home, Self Care Clinical Impression: New persistent daily headache Condition: Stable Record reviewed to determine appropriate education?: Yes Instructions: ED Cephalgia Unspecified Prescriptions: dexAMETHasone [Decadron] 4 mg PO DAILY #10 tablet cephALEXin [Keflex] 500 mg PO TID #15 cap HYDROcod/ACETAM 5/325 [[place] 5/325] 1 ea PO Q6H PRN #18 tablet PRN Reason: Pain Promethazine [Phenergan] 25 mg PO Q6H PRN #10 tab PRN Reason: Nausea / Vomiting Ondansetron Odt [Zofran] 4 mg TL Q6H PRN #20 tablet PRN Reason: Nausea / Vomiting Comments: It is unclear whether your headache is a functional headache such as a daily persistent headache versus migraine versus a nerve irritation from the neck causing the pain. Your CT of the neck and head did not show any obvious acute abnormalities and no signs of blood flow disruption such as dissection. At this point we can do a combination of a steroid anti-inflammatory. I prescribed Decadron daily for 7 more days. To that add Tylenol every 4-6 hours for pain or hydrocodone if needed for worse pain. I prescribed to nausea medicines, ondansetron dissolving tablet to use for nausea if needed and promethazine tablet if needed for nausea as well. The Zofran should be nonsedating and the promethazine some sedating so given a choice of the 2 or both. To this we can add hydrocodone every 4-6 hours if needed for headache/pain. Its unclear how much added nausea you have because of the doxycycline antibiotic. It can be irritating on the stomach. You could potentially change from that to cephalexin which is also useful for sinus infections. This may be much easier on the stomach. Follow-up with your primary care if persisting symptoms and return to the ER as needed. Your prescriptions were transmitted to [facility] pharmacy. I am prescribing a short course of narcotic pain medication for you. These are potentially dangerous and addictive medications that should be used carefully. These medications may constipate you. Take an frwy-xgh-nulajum stool softener such as docusate twice daily with plenty of water while taking these medicat ions. If you go 24 hours without a bowel movement, take lxdy-ccf-icirvdy MiraLAX, per package instructions. Do not drink or drive while taking these medications. If you received narcotic or sedating medications while in the emergency department do not drive for 24 hours. Store this medication in a safe, secure place and out of reach of children. It is a violation of federal law to give or sell this medication to another person or to use in a manner other than prescribed. The ED will not refill narcotic prescriptions, including prescriptions lost or stolen. You can dispose of unwanted medications at the [facility]'s office or at several pharmacies such as [facility].
[2022-12-02 15:06] LABS: BASOPHILS % (AUTO) 0.6 %; EOSINOPHILS # (AUTO) 0.2 10^3/uL (0.0-0.7); EOSINOPHILS % (AUTO) 2.9 %; HCT - HEMATOCRIT 44.8 % (37.0-47.0); HGB - HEMOGLOBIN 14.8 g/dL (12.0-16.0); LYMPHOCYTES # (AUTO) 1.4 10^3/uL (1.5-3.5); LYMPHOCYTES % (AUTO) 22.8 %; MEAN CORPUSCULAR HEMOGLOBIN 30.9 pg (27.0-31.0); MEAN CORPUSCULAR VOLUME 93.5 fL (81.0-99.0); MEAN PLATELET VOLUME 9.9 fL (7.9-10.8); MONOCYTES # (AUTO) 0.5 10^3/uL (0.0-1.0); MONOCYTES % (AUTO) 8.5 %; PLT - PLATELET COUNT 287 10^3/uL (130-450); RED BLOOD COUNT 4.79 10^6/uL (4.20-5.40); RED CELL DISTRIBUTION WIDTH 11.5 % (12.0-15.0); WHITE BLOOD COUNT 6.2 x10^3/uL (4.8-10.8)
[2022-12-02 15:15] LABS: INR 1.1 (0.8-1.2); PT - PROTHROMBIN TIME 12.5 secs (9.9-12.6)
[2022-12-02 15:23] LABS: ALBUMIN 4.2 g/dL (3.2-5.5); ALBUMIN/GLOBULIN RATIO 1.3 (1.0-2.2); BILIRUBIN,TOTAL 0.8 mg/dL (0.2-1.0); CALCIUM 9.1 mg/dL (8.5-10.3); CREATININE 0.8 mg/dL (0.4-1.0); POTASSIUM 3.5 mmol/L (3.5-5.0); TOTAL PROTEIN 7.5 g/dL (6.7-8.2)
[2022-12-02 15:31] LABS: HCG,QUALITATIVE BLOOD NEGATIVE
[2022-12-02] MEDS ORDERED: SODIUM CHLORIDE 0.9% 1,000 ML IV STA (15:36)
[2022-12-02] MEDS ORDERED: KETOROLAC 15 MG/ML VIAL IVP STA (15:36)
[2022-12-02] MEDS ORDERED: DROPERIDOL 5 MG/2 ML VIAL IVP STA (15:36)
[2022-12-02] MEDS ORDERED: TRIAMCINOLONE 40 MG/ML VIAL MC STA (15:36)
[2022-12-02] MEDS ORDERED: BUPIVACAINE 0.5%-EPI 1:200000 PF 30 ML VIAL SUBQ ONE (15:37)
[2022-12-02] MEDS ORDERED: iohexoL-300 100 ML VIAL ONE (16:21)
[2022-12-02] MEDS ORDERED: diphenhydrAMINE INJ 50 MG/ML VIAL IVP STA (16:52)
[2022-12-02] MEDS ORDERED: PROCHLORPERAZINE 10 MG/2 ML VIAL IVP STA (16:52)
[2022-12-02] MEDS ORDERED: iohexoL-300 100 ML VIAL IVP ONE (21:18)
[2022-12-02] MEDS ORDERED: HYDROmorphone 1 MG/ML CARPUJECT IVP STA (21:27)
--- NOTE | 2022-12-02 22:24 | ED Physician Documentation ---
ED Addendum - Addendum Addendum: 12/02/22 22:22 Impression: No hemodynamically significant stenosis can be seen within the arteries of the neck. No findings of dissection are seen. Negative for cervical spine fracture. No neck soft tissue hematoma is identified. 12/02/22 22:22 Impression: No significant intracranial arterial abnormalities are seen. No significant intracranial abnormality is seen a small amount of left mastoid air cell fluid is again seen.
[2022-12-02] MEDS ORDERED: ONDANSETRON ODT 4 MG Prepack 2 TL PRN (22:36)
[2022-12-02] MEDS ORDERED: oxyCODONE/ACET 5/325 Prepack 4 PO STA (23:00)
[2022-12-02 23:07] VITALS: BP 107/64
--- NOTE | 2022-12-03 07:08 | CT Report ---
PROCEDURE: ANGIO NECK W INDICATIONS: headache, neck pain after fall x 1 week CONTRAST: 80ml omni 300 TECHNIQUE: After the administration of intravenous contrast, 1.5 mm axial sections acquired from the aortic arch to the [place] of [place]. Coronal 3-D maximum intensity projection (MIP) and/or volume rendering ref ormats were then performed. For radiation dose reduction, the following was used: automated exposur e control, adjustment of mA and/or kV according to patient size. COMPARISON: Correlation is made with the accompanying head CT angiogram, 12/02/2022. FINDINGS: Image quality: Excellent. Carotid system: The great vessels demonstrate a conventional anatomy as they arise from the aortic a rch. The origins of the common carotid arteries appear patent. The common carotid arteries demonstr ate normal calibers and courses. The bifurcation regions appear normal bilaterally. The internal ca rotid arteries demonstrate normal caliber and course. Posterior circulation: The origins of the vertebral arteries appear patent. The more superior porti ons of the vertebral arteries demonstrate normal course and caliber. They join to form a normal appe aring basilar artery. Soft tissues: Visualized neck soft tissues demonstrate no suspicious abnormalities. The thyroid is normal in size and there are no incidental findings. Bones: No suspicious bony lesions. Visualized cervical spine appears normally aligned. No cervical spine fracture can be seen. IMPRESSION: No hemodynamically significant stenosis can be seen within the arteries of the neck. No findings of dissection are seen. Negative for cervical spine fracture. No neck soft tissue hematoma is identified. The estimate of stenosis included in the report of the imaging study was calculated using the NASCET method Reviewed by: Marco A Grove MD on 12/02/2022 6:15 PM JACQUES Approved by: Marco A Grove MD on 12/02/2022 6:15 PM JACQUES Station ID: [id number]
--- NOTE | 2022-12-03 07:08 | CT Report ---
PROCEDURE: ANGIO HEAD W/WO INDICATIONS: headache, visual changes CONTRAST: 80ml omni 300 TECHNIQUE: Precontrast 4.5 mm thick angled axial sections acquired from the foramen magnum to the vertex. Afte r the administration of intravenous contrast, 1 mm thick sections acquired through the [place] of [place] is. Postcontrast 4.5 mm thick sections then re-acquired from the foramen magnum to the vertex. 3-di mensional bxfemwa-ixhmmqlrv-tknhtkjdpl (MIP) and/or volume rendering reformats were acquired of the c entral intracranial vasculature. For radiation dose reduction, the following was used: automated ex posure control, adjustment of mA and/or kV according to patient size. COMPARISON: Head CT, 11/25/2022. Correlation is also made with the accompanying neck CT angiogram, 04/03/2023. FINDINGS: Image quality: There is streak artifact seen through the skull base. Anterior circulation: Intracranial internal carotid arteries are normal in size and flow. The flow within the paired anterior cerebral arteries is normal and symmetric. The flow within the middle cer ebral arteries is normal and symmetric. The anterior communicating artery is seen. No aneurysms are seen. Posterior circulation: Visualized portions of the vertebral arteries demonstrate normal caliber, and join to form a normal appearing basilar artery. Flow within the posterior cerebral arteries is norm al and symmetric. No aneurysms are seen. CSF spaces: Ventricles are normal in size and shape. Basal cisterns are patent. No extra-axial flu id collections. Brain: No midline shift. No intracranial bleeds or masses. Bennett-white matter interface appears int act. Skull and face: Calvarium and facial bones appear intact, without suspicious lesions. Sinuses: No significant paranasal sinus disease is seen. There is mild left-sided mastoid air cell fl uid. IMPRESSION: No significant intracranial arterial abnormalities are seen. No significant intracranial abnormality is seen. A small amount of left mastoid air cell fluid is again seen. Reviewed by: Marco A Grove MD on 12/02/2022 6:14 PM JACQUES Approved by: Marco A Grove MD on 12/02/2022 6:14 PM AKLU Station ID: [id number]
== END 2022-12-02 23:07 | disposition home or self-care (01) ==
LOC: ED 14:13
DX: R51.9 Headache, unspecified (principal); M54.2 Cervicalgia
CPT/HCPCS: 20552; 36415; 70496; 70498; 80053; 83690; 84703; 85025; 85610; 85651; 96374; 96375; 99284; J1170; J1200; Q9967